=== PATIENT | female | born 1995 | race Caucasian/White ===

== ENCOUNTER 2017-01-04 14:58 | Emergency (ER) | payer OTHER ==
--- NOTE | 2017-01-04 16:18 | ER Document Report ---
ED Medical Screen (RME) - General Chief Complaint: Vaginal Bleeding Stated Complaint: ABDOMINAL CRAMPING Time Seen by Provider: 01/04/17 16:12 Notes: The patient is a 21-year-old female, 15 weeks confirmed IUP by ultrasound, presents with increased vaginal spotting over the past day. She has noticed a small amount of spotting throughout this after stress or intercourse, which her OB said was normal. Her blood type is O+. She denies abdominal pain, nausea, vomiting, urinary symptoms or lightheadedness. PE: NAD. Abdomen soft and non-tender. I have greeted and performed a rapid initial assessment of this patient. A comprehensive ED assessment and evaluation of the patient, analysis of test results and completion of the medical decision making process will be conducted by additional ED providers. TRAVEL OUTSIDE OF THE [place] IN LAST 30 DAYS: No - Related Data Allergies/Adverse Reactions: sulfamethoxazole [From Marra] Allergy (Verified 01/04/17 15:02) trimethoprim [From Septra] Allergy (Verified 01/04/17 15:02) Past Medical History Renal/ Medical History: Denies: Hx Peritoneal Dialysis Physical Exam - Vital signs Vitals: Temp Pulse Resp BP Pulse Ox 98.3 F 85 12 124/66 100 01/04/17 15:02 01/04/17 15:02 01/04/17 15:02 01/04/17 15:02 01/04/17 15:02 Course - Vital Signs Vital signs: Temp Pulse Resp BP Pulse Ox 98.3 F 85 12 124/66 100 01/04/17 15:02 01/04/17 15:02 01/04/17 15:02 01/04/17 15:02 01/04/17 15:02
--- NOTE | 2017-01-04 17:19 | ER Document Report ---
ED GI/ - General Mode of Arrival: Ambulatory Information source: Patient TRAVEL OUTSIDE OF THE [place] IN LAST 30 DAYS: No - HPI Patient complains to provider of: Abdominal pain - right side superpubic, - 15 weeks 3 days, Vaginal bleeding Onset: Yesterday Quality of pain: Cramping Pain Level: 3 Location: Suprapubic - right side Vaginal bleeding (Compared to normal period): Spotting, Dark brown. denies: Bright red, Passing clots Menstrual period history: OB ultrasound done: Yes - General Chief Complaint: Vaginal Bleeding Stated Complaint: ABDOMINAL CRAMPING Time Seen by Provider: 01/04/17 16:12 Notes: 1707 Patient is a 21 year old female who presents to the ED with complaints of vaginal spotting with onset last night that worsened this afternoon. Patient is currently 15 weeks and 3 days and this is patients 1st . Patient states the vaginal spotting is dark brown and red but denies any bright red blood or passing any clots. Patient states she also has right side superpubic pain. Patient is seen at [facility]. Patient denies a headache, blurred vision, sore throat, rhinorrhea, ear pain, chest pain, SOB, nausea, vomiting, diarrhea, numbness or tingling, or any increase in swelling in her hands and feet. Patient states that there has been no sexual activity in the past 3 days. Patient rates her pain as a 3/5 currently. No other concerns or complaints at this time. (PERFECTO DILLON) - Related Data Allergies/Adverse Reactions: sulfamethoxazole [From ] Allergy (Verified 01/04/17 15:02) trimethoprim [From Marra] Allergy (Verified 01/04/17 15:02) Past Medical History - General Information source: Patient - Social History Smoking Status: Former Smoker Cigarette use (# per day): No Chew tobacco use (# tins/day): No Frequency of alcohol use: None Drug Abuse: None Family History: None Patient has suicidal ideation: No Patient has homicidal ideation: No - Medical History Medical History: Negative Renal/ Medical History: Denies: Hx Peritoneal Dialysis Past Surgical History: Reports: Hx Kidney (Renal Surgery) - "stretched" Ureters , Hx Oral Surgery - wisdom teeth removal Review of Systems - Review of Systems Constitutional: No symptoms reported EENT: No symptoms reported. denies: Blurred vision, Ear pain, Throat pain, Other - rhinorrhea Cardiovascular: No symptoms reported. denies: Chest pain Respiratory: No symptoms reported. denies: Short of breath Gastrointestinal: See HPI, Abdominal pain - right side superpubic. denies: Diarrhea, Nausea, Vomiting Genitourinary: See HPI Female Genitourinary: See HPI, , Vaginal bleeding, Other - no clots Musculoskeletal: No symptoms reported. denies: Other - swelling in hands and feet Skin: No symptoms reported Hematologic/Lymphatic: No symptoms reported Neurological/Psychological: No symptoms reported. denies: Headaches, Numbness, Tingling Physical Exam - Vital signs Vitals: Temp Pulse Resp BP Pulse Ox 98.3 F 85 12 124/66 100 01/04/17 15:02 01/04/17 15:02 01/04/17 15:02 01/04/17 15:02 01/04/17 15:02 - Notes Notes: GENERAL: Alert, interacts well. No acute distress. HEAD: Normocephalic, atraumatic. EYES: Pupils equal, round, and reactive to light. Extraocular movements intact. ENT: Oral mucosa moist, tongue midline. NECK: Full range of motion. Supple. Trachea midline. LUNGS: Clear to auscultation bilaterally, no wheezes, rales, or rhonchi. No respiratory distress. HEART: Regular rate and rhythm. No murmurs, gallops, or rubs. ABDOMEN: Soft, non-tender. Gravid abdomen. Bowel sounds present in all 4 quadrants. Uterus is palpable 3cm above the pubis synthesis and is tender to palpation, abdomen itself is non tender EXTREMITIES: Moves all 4 extremities spontaneously. No edema, radial and dorsalis pedis pulses 2/4 bilaterally. No cyanosis. NEUROLOGICAL: Alert and oriented x3. Normal speech. PSYCH: Normal affect, normal mood. SKIN: Warm, dry, normal turgor. No rashes or lesions noted. (PERFECTO DILLON) Course - Re-evaluation Re-evalutation: 01/04/17 21:46 Quantitative hCG is 33,349, urinalysis shows small blood but no signs of infection. Patient is O+ program is not indicated. Transvaginal ultrasound shows single intrauterine with a heartbeat of 140-150 bpm, no evidence of subchorionic hemorrhage. Patient will be discharged home. (DEJAN NOWAK) - Vital Signs Vital signs: Temp Pulse Resp BP Pulse Ox 98.4 F 80 16 120/60 99 01/04/17 21:54 01/04/17 21:54 01/04/17 21:54 01/04/17 21:54 01/04/17 21:54 - Laboratory Laboratory results interpreted by me: 01/04/17 01/04/17 16:25 19:53 Beta HCG, Quant 41887.00 H Urine Blood SMALL H Discharge - Discharge Clinical Impression: First trimester bleeding Condition: Stable Disposition: HOME, SELF-CARE Additional Instructions: We did not find anything concerning on your workup today. Your quantitative hCG is 33,349. Your transvaginal ultrasound showed a normal healthy intrauterine today. Your bleeding appears to be coming once again from cervical irritation. We do not see any signs of miscarriage. If you have sex or put anything in your vagina it will likely cause more bleeding but will not likely cause a miscarriage. Referrals: SAMRA LEHMAN MD [Primary Care Provider] - Follow up as needed Scribe Attestation: 01/05/17 00:07 I personally performed the services described in the documentation, reviewed and edited the documentation which was dictated to the scribe in my presence, and it accurately records my words and actions. (DEJAN NOWAK) Scribe Documentation - Scribe Written by Emmanuel:: emmanuel Ordonez, 01/04/2017, [id number] acting as scribe for :: Carol
[2017-01-04 20:14] LABS: APPEARANCE,URINE SLIGHTLY-CLOUDY; BILIRUBIN,URINE NEGATIVE (NEGATIVE); CALCIUM OXALATE CRYSTALS,URINE FEW /HPF; GLUCOSE, URINE NEGATIVE (NEGATIVE); KETONES,URINE NEGATIVE (NEGATIVE); LEUKOCYTE ESTERASE,URINE NEGATIVE (NEGATIVE); NITRITE,URINE NEGATIVE (NEGATIVE); PROTEIN,URINE NEGATIVE (NEGATIVE); URINE SPECIFIC GRAVITY 1.019; UROBILINOGEN,URINE NEGATIVE mg/dL (<2.0)
--- NOTE | 2017-01-04 20:46 | RADIOLOGY REPORT (SQ) ---
EXAM DESCRIPTION: U/S OB 14+ TA/1 GEST W/DOPPLER COMPLETED DATE/TIME: 01/04/2017 7:38 pm REASON FOR STUDY: 15 wk preg, vag bleed, pain COMPARISON: None. TECHNIQUE: Static and Dynamic grayscale imaging performed of gravid uterus using transabdominal appr oach. Additional selected color Doppler and spectral images recorded. All stored on PACS. LIMITATIONS: None. FINDINGS: EGA: 15 weeks 4 days SULY: 06/24/2017 EFW: NA PERCENTILE: NA LVP: 4.1 CM PLACENTA: ANTERIOR PRESENTATION: Breech. ANATOMY: HEART RATE: 150 beats per minute. FOUR CHAMBER HEART: Not visualized THREE VESSEL CORD: Not visualized CORD INSERTION: Visualized. KIDNEYS AND BLADDER: Visualized. Appear normal. STOMACH: Visualized. Appears normal. SPINE: Not visualized BRAIN AND LATERAL VENTRICLES: Not visualized OTHER: No other significant finding. MATERNAL ADNEXA: Right ovary not visualized. Left ovary measures 2.9 x 2.3 x 1.6 cm and appears norm al CERVICAL LENGTH: 3.1 cm Closed. OTHER: No other significant finding. IMPRESSION: LIVING INTRAUTERINE . ESTIMATED GESTATIONAL AGE 15 weeks 4 days Limited visualization of the anatomy. No significant abnormality identified in the visualized portio ns. Trimester of : Second trimester - 13 weeks 1 day to 27 weeks 6 days. TECHNICAL DOCUMENTATION: JOB ID: [id number] All Rights Reserved
[2017-01-04 22:11] VITALS: BP 120/60
== END 2017-01-04 21:54 | disposition home or self-care (01) ==
LOC: ER 14:58
DX: O26.852 Spotting complicating pregnancy, second trimester (principal); Z3A.15 15 weeks gestation of pregnancy; Z88.3 Allergy status to other anti-infective agents; Z87.891 Personal history of nicotine dependence
CPT/HCPCS: 36415; 76805; 81001; 84702; 86900; 86901; 93976; 99284

== ENCOUNTER 2017-03-27 09:08 | Emergency (ER) | payer OTHER ==
[2017-03-27 09:12] VITALS: BP 124/72
[2017-03-27] MEDS ORDERED: LIDOCAINE 5% (700 MG) TRANSDERMAL ADH..PATCH TP ONE (09:53)
--- NOTE | 2017-03-27 09:55 | ER Document Report ---
HPI - HPI Patient complains to provider of: Sacroiliitis Onset: Last week Onset/Duration: Worse Quality of pain: Sharp Pain Level: 3 Context: Patient complains of right posterior hip pain for the past week that seemed to be more sharp today. Patient states pain is worse with movement. Patient denies any injury. Patient is currently 27 weeks . Patient denies any low back, urinary symptoms, or abdominal pain. Patient denies any vaginal bleeding or discharge. Patient denies any fever or recent illness. Associated Symptoms: Other - Right posterior hip pain Exacerbated by: Standing, Movement, Walking Relieved by: Remaining still Similar symptoms previously: Yes Recently seen / treated by doctor: Yes - ROS ROS below otherwise negative: Yes Systems Reviewed and Negative: Yes All other systems reviewed and negative - CONSTITUTIONAL Constitutional: DENIES: Fever, Chills - NEURO Neurology: DENIES: Headache, Weakness - CARDIOVASCULAR Cardiovascular: DENIES: Chest pain - GASTROINTESTINAL Gastrointestinal: DENIES: Abdominal Pain - URINARY Urinary: DENIES: Dysuria, Urgency, Frequency - MUSCULOSKELETAL Musculoskeletal: REPORTS: Extremity pain - DERM Skin Color: Normal Skin Problems: None Past Medical History - General Information source: Patient - Social History Smoking Status: Never Smoker Chew tobacco use (# tins/day): No Frequency of alcohol use: None Drug Abuse: None Occupation: none Lives with: Spouse/Significant other Family History: None - Medical History Medical History: Negative Renal/ Medical History: Denies: Hx Peritoneal Dialysis Past Surgical History: Reports: Hx Kidney (Renal Surgery) - "stretched" Ureters , Hx Oral Surgery - wisdom teeth removal - Immunizations Hx Diphtheria, Pertussis, Tetanus Vaccination: Yes Vertical Provider Document - CONSTITUTIONAL Agree With Documented VS: Yes Exam Limitations: No Limitations General Appearance: WD/WN, No Apparent Distress - INFECTION CONTROL TRAVEL OUTSIDE OF THE [place] IN LAST 30 DAYS: No - HEENT HEENT: Atraumatic, Normocephalic - NECK Neck: Normal Inspection, Supple - RESPIRATORY Respiratory: Breath Sounds Normal, No Respiratory Distress, Chest Non-Tender O2 Sat by Pulse Oximetry: 98 - CARDIOVASCULAR Cardiovascular: Regular Rate, Regular Rhythm, No Murmur Pulses: Normal: Dorsalis pedis - GI/ABDOMEN Gastrointestinal: Abdomen Soft, Abdomen Non-Tender Notes: gravid abd - BACK Back: Abnormal Inspection - Right SI joint tenderness. negative: CVA Tenderness -Right, CVA Tenderness-Left - MUSCULOSKELETAL/EXTREMETIES Musculoskeletal/Extremeties: MANUEL NEAL - NEURO Level of Consciousness: Awake, Alert, Appropriate Motor/Sensory: No Motor Deficit, No Sensory Deficit Notes: No saddle anesthesia, no footdrop - DERM Integumentary: Warm, Dry, No Rash Course - Re-evaluation Re-evalutation: 03/27/17 09:[address] Obando regarding patient presentation. Discussed plan to treat for SI joint tenderness, no abdominal pain no other back pain, agrees with plan to defer eval on labor and delivery. Does recommend obtaining urinalysis. - Vital Signs Vital signs: Temp Pulse Resp BP Pulse Ox 98.6 F 93 16 124/72 98 03/27/17 09:11 03/27/17 09:11 03/27/17 09:11 03/27/17 09:11 03/27/17 09:11 - Laboratory Laboratory results interpreted by me: 03/27/17 10:28 Labs- Entire Visit 03/27/17 10:00 Urine Color YELLOW Urine Appearance CLEAR Urine pH 6.0 Ur Specific [place] 1.010 Urine Protein NEGATIVE Urine Glucose (UA) 50 H Urine Ketones NEGATIVE Urine Blood NEGATIVE Urine Nitrite NEGATIVE Urine Bilirubin NEGATIVE Urine Urobilinogen NEGATIVE Ur Leukocyte Esterase NEGATIVE Urine WBC (Auto) 2 Urine RBC (Auto) 1 Urine Bacteria (Auto) 1+ Squamous Epi Cells Auto 1 Urine Mucus (Auto) RARE Urine Ascorbic Acid NEGATIVE Discharge - Discharge Clinical Impression: Sacro-iliac pain Condition: Stable Disposition: HOME, SELF-CARE Instructions: Acetaminophen, Ice Packs ([facility]), Low Back Pain ([facility]), Warm Packs ( [facility]) Additional Instructions: Return immediately for any new or worsening symptoms Followup with your primary care provider, call tomorrow to make a followup appointment Prescriptions: Lidocaine [Lidoderm 5% (700 mg) Transdermal Patch] 1 patch TP DAILY #7 adh..patch Referrals: [facility] [Provider Group] - Follow up tomorrow
[2017-03-27 10:17] LABS: APPEARANCE,URINE CLEAR; BILIRUBIN,URINE NEGATIVE (NEGATIVE); GLUCOSE, URINE 50 mg/dL (NEGATIVE); KETONES,URINE NEGATIVE (NEGATIVE); LEUKOCYTE ESTERASE,URINE NEGATIVE (NEGATIVE); NITRITE,URINE NEGATIVE (NEGATIVE); PROTEIN,URINE NEGATIVE (NEGATIVE); UROBILINOGEN,URINE NEGATIVE mg/dL (<2.0)
== END 2017-03-27 10:25 | disposition home or self-care (01) ==
LOC: ER 09:08
DX: M46.1 Sacroiliitis, not elsewhere classified (principal); Z3A.27 27 weeks gestation of pregnancy
CPT/HCPCS: 81001; 99283

== ENCOUNTER 2017-06-25 11:13 | Inpatient (IN) | payer OTHER ==
[2017-06-25 11:43] LABS: APPEARANCE,URINE CLOUDY; BILIRUBIN,URINE NEGATIVE (NEGATIVE); GLUCOSE, URINE NEGATIVE (NEGATIVE); KETONES,URINE NEGATIVE (NEGATIVE); LEUKOCYTE ESTERASE,URINE SMALL (NEGATIVE); NITRITE,URINE NEGATIVE (NEGATIVE); PROTEIN,URINE 30 mg/dL (NEGATIVE); URINE SPECIFIC GRAVITY 1.016; UROBILINOGEN,URINE NEGATIVE mg/dL (<2.0)
[2017-06-25 12:08] LABS: URINE BARBITURATES SCREEN NEGATIVE; URINE METHADONE SCREEN NEGATIVE; URINE OPIATES LOW NEGATIVE; URINE PHENCYCLIDINE SCREEN NEGATIVE
[2017-06-25] MEDS ORDERED: RINGERS SOLUTION,LACTATED 1,000 ML IV PRN (14:00)
[2017-06-25] MEDS ORDERED: RINGERS SOLUTION,LACTATED 1,000 ML IV ONE (14:03)
[2017-06-25 14:54] LABS: ABSOLUTE MONOCYTES (AUTO) 0.5 10^3/uL (0.1-1.4); ABSOLUTE NEUT (AUTO) 10.5 10^3/uL (1.7-8.2); BASOPHILS % (AUTO) 0.3 % (0-2); EOSINOPHILS % (AUTO) 0.1 % (0-6); HEMOGLOBIN 11.2 g/dL (12.0-15.5); HGB HCT DIFFERENCE 0.6; LYMPHOCYTES % (AUTO) 8.4 % (13-45); MEAN CORPUSCULAR HEMOGLOBIN 29.3 pg (27.0-33.4); MEAN CORPUSCULAR HGB CONC 33.9 g/dL (32.0-36.0); MEAN CORPUSCULAR VOLUME 86 fl (80-97); MONOCYTES % (AUTO) 3.8 % (3-13); RED BLOOD COUNT 3.83 10^6/uL (3.72-5.28); RED CELL DISTRIBUTION WIDTH 13.9 % (11.5-14.0); SEGMENTED NEUTROPHILS % (AUTO) 87.4 % (42-78)
[2017-06-25] MEDS ORDERED: ONDANSETRON HCL INJ/PF 4 MG/2 ML SDV IV ONE (14:59)
[2017-06-25] MEDS ORDERED: ONDANSETRON HCL INJ/PF 4 MG/2 ML SDV ONE (15:00)
[2017-06-25] MEDS ORDERED: EPHEDRINE SULFATE INJ 50 MG/1 ML AMPULE ONE (15:10)
[2017-06-25] MEDS ORDERED: FENTANYL/BUPIVACAINE/NS/PF 200 MCG/100 ML RTUINJ EPI ONE (15:10)
[2017-06-25] MEDS ORDERED: BUPIVACAINE HCL 0.25 % INJ/PF (2.5 MG/1 ML) 30 ML VIAL ONE (15:10)
[2017-06-25] MEDS ORDERED: OXYTOCIN/NORMAL SALINE 20 UNIT/1,000 ML RTUINJ ONE (18:05)
[2017-06-25] MEDS ORDERED: LIDOCAINE 1% INJ-PF (10 MG/ML) 30 ML SDV ONE (18:05)
[2017-06-25] MEDS ORDERED: MISOPROSTOL 0.2 MG TABLET ONE (18:05)
[2017-06-25] MEDS ORDERED: PROMETHAZINE HCL 25 MG TABLET PO PRN (20:17)
[2017-06-25] MEDS ORDERED: DIPHENHYDRAMINE HCL 25 MG CAPSULE PO PRN (20:17)
[2017-06-25] MEDS ORDERED: NA PHOS,M-B/NA PHOS,DI-BA (ADULT) 133 ML ENEMA PR PRN (20:17)
[2017-06-25] MEDS ORDERED: PSEUDOEPHEDRINE HCL 30 MG TABLET PO PRN (20:17)
[2017-06-25] MEDS ORDERED: PROMETHAZINE HCL INJ 25 MG/1 ML VIAL IV PRN (20:17)
[2017-06-25] MEDS ORDERED: OXYTOCIN/NORMAL SALINE 20 UNIT/1,000 ML RTUINJ IV PRN (20:17)
[2017-06-25] MEDS ORDERED: ACETAMINOPHEN WITH CODEINE #3 TABLET PO PRN ×2 (20:17)
[2017-06-25] MEDS ORDERED: GLYCERIN/WITCH HAZEL LEAF 1 EACH MED..PAD TP PRN (20:17)
[2017-06-25] MEDS ORDERED: DIBUCAINE 1% OINTMENT 28 GM TP PRN (20:17)
[2017-06-25] MEDS ORDERED: BENZOCAINE/MENTHOL AEROSOL SPRAY 56 ML TOP PRN (20:17)
[2017-06-25] MEDS ORDERED: DIPH/PERTUSS(ACELL)/TETANUS VAC/PF 0.5 ML SYR (>=10YO) IM PRN (20:17)
[2017-06-25] MEDS ORDERED: MAGNESIUM HYDROXIDE SUSP 30 ML UDCUP PO PRN (20:17)
[2017-06-25] MEDS ORDERED: ZOLPIDEM TARTRATE 5 MG TABLET PO PRN (20:17)
[2017-06-25] MEDS ORDERED: ACETAMINOPHEN 650 MG SUPP.RECT PR PRN (20:17)
[2017-06-25] MEDS ORDERED: MEASLES,MUMPS&RUBELLA VACC/PF 0.5 ML VIAL SUBCUT PRN (20:17)
[2017-06-25] MEDS ORDERED: PROMETHAZINE HCL 25 MG SUPP.RECT PR PRN (20:17)
--- NOTE | 2017-06-25 20:55 | Delivery Summary ---
Del Sum A-C Datetime Report Generated by CPN: 06/25/2017 20:54 DELIVERY PERSONNEL DELIVERY PERSONNEL: [id number] Delivery Doctor:: Brynn Amador CNM Labor and Delivery Nurse:: Rosemary Fortune RNsoftware installer Nurse:: Zenaida Simpson RN Nursery Nurse:: Shira Dillard RN Tube Blower/FOOD SERVICE HELPER: Beatrizsuzy Palmer, ST MATERNAL INFORMATION Delivery Anesthesia: Epidural Medications After Delivery: Pitocin Bolus-Please Comment; Pitocin Drip 20 Units/1000ml NSS Estimated Blood Loss (ml): 250 Maternal Complications: None Provider Comments: after onset of spontaneous labor KESHIA VIABLE MALE WITH SPONTANEOUS CRY SHOULDERS DELIVERED EASILY AFTER NUCHAL CORD REDUCED OVER HEAD CORD DOUBLE CLAMPED AND CUT BY FOB SPONTANEOUS PLACENTA WITH 3VC REPAIR OF LACERATION NOTED ABOVE MOTHER AND STABLE IN L_D #2 LABOR SUMMARY EDC: 06/20/2017 00:00 No. Babies in Womb: 1 Attempted: No Labor Anesthesia: Epidural LABOR INFORMATION Reason for Induction: Not Applicable Onset of Labor: 06/25/2017 13:32 Complete Dilatation: 06/25/2017 18:03 Oxytocin: N/A Group B Beta Strep: Negative Antibiotics # of Doses: N/A Antibiotics Time of Last Dose: N/A Name of Antibiotic Given: N/A Steroids Given: None Reason Steroids Not Administered: Not Applicable MEMBRANES Membranes Rupture Method: Spontaneous Rupture of Membranes: 06/25/2017 19:06 Length of Rupture (hr): 0.53 Amniotic Fluid Color: Clear Amniotic Fluid Amount: Small Amniotic Fluid Odor: Normal STAGES OF LABOR Stage 1 hr: 4 Stage 1 min: 31 Stage 2 hr: 1 Stage 2 min: 35 Stage 3 hr: 0 Stage 3 min: 7 Total Time in Labor hr: 6 Total Time in Labor min: 13 VAGINAL DELIVERY Episiotomy: None Laceration #1: Periurethral Laceration Extension #1: N/A Laceration #2: Perineal Laceration Extension #2: First Degree Laceration Repair: Not Applicable Laceration Repair Note: first degree perineal laceration repaired with 3.0 chromic suture Sponge Count Correct: N/A Sharps Count Correct: N/A CSECTION DELIVERY Primary Indication: N/A Secondary Indication: N/A CSection Incidence: N/A Labor: N/A Elective: N/A CSection Incision: N/A BABY A INFORMATION Delivery Date/Time: 06/25/2017 19:38 Method of Delivery: Vaginal Born in Route : No : N/A Forceps: N/A Vacuum Extraction: N/A Shoulder Dystocia : No PRESENTATION/POSITION BABY A Presentation: Cephalic Cephalic Presentation: Vertex Vertex Position: Right Occipital Anterior Breech Presentation: N/A PLACENTA INFORMATION BABY A Placenta Delivery Time : 06/25/2017 19:45 Placenta Method of Delivery: Spontaneous Placenta Status: Delivered SCORES BABY A Heart Rate 1 min: >100 bpm Resp Effort 1 min: Good Cry Reflex Irritability 1 min: Cough or Sneeze or Pulls Away Muscle Tone 1 min: Active Motion Color 1 min: Body Pace, Extremities Blue SCORE 1 MIN: 9 Heart Rate 5 min: >100 bpm Resp Effort 5 min: Good Cry Reflex Irritability 5 min: Cough or Sneeze or Pulls Away Muscle Tone 5 min: Active Motion Color 5 min: Body Pace, Extremities Blue SCORE 5 MIN: 9 INFORMATION BABY A Gestational Age at Delivery: 40.5 Gestational Status: Full Term- 39- 40.6 Weeks Infant Outcome : Liveborn Infant Condition : Stable Sex: Male IDENTIFICATION BABY A Verification Date/Time: 06/25/2017 19:50 ID Band Number: [id number] Mother's Name Verified: Yes Infant RN Verifying : Zenaida Ovallelek/ Candida Goodman WEIGHT/LENGTH BABY A Infant Birthweight (gm): 3630 Weight (lb): 8 Infant Weight (oz): 0 Length (in): 21.00 Infant Length (cm): 53.34 CORD INFORMATION BABY A No. Cord Vessels: 3 Nuchal Cord : Around Neck x1, Loose Cord Blood Taken: Yes-For Eval (Mom's Blood Type - or O+) Suction: Mouth; Nose ASSESSMENT BABY A Complications: None Physical Findings at Delivery: Within Normal Limits Respirations: Appears Normal Skin to Skin: Yes Skin to Skin Time (min): 45 Clinical Research Director/ALS Called : No Care By: BOUCHRA Kilgore Transferred To: Remains with Mother BABY B INFORMATION : N/A SIGNATURES Assignment: Dani Son MD Signature: with User ID: [email or web address] : with User ID: [email or web address] : I was personally available for consultation and serving as supervising physician for the MLP.
--- NOTE | 2017-06-25 22:35 | Admission Physical ---
Datetime Report Generated by CPN: 06/25/2017 22:35 CURRENT ADMISSION Chief Complaint: Uterine Contractions Indication for Induction: Not Applicable Indication for Induction: Postterm, Intrauterine ; Active Labor Admit Plan: Admit to Unit; Initiate Labor Protocol Admit Plan- Other: GBS neg ALLERGIES Medication Allergies: Yes Medication Allergies: sulfamethoxazole (03/27/2017); trimethoprim (03/27/2017) Latex: No Latex Allergies Food Allergies: N/A Environmental Allergies: N/A OBSTETRICAL HISTORY EDC: 06/20/2017 00:00 : 1 Para: 0 Gestational Diabetes: No Rh Sensitization: No Incompetent Cervix: No ABILIO: No Infertility: No ART Treatment: No Uterine Anomaly: No IUGR: No Hx Previous C/S: No Macrosomia: No Hx Loss/Stillborn: No PIH: No Hx : No Placenta Previa/Abruption: No Depression/PP Depression: Yes PTL/PROM: No Post Hemorrhage: No Current Procedures: Ultrasound Obstetrical History Comments: G1 - Current SEE RECORDS Alcohol: No Marijuana : No Cocaine: No Other Illicit Drugs: No Cigarettes: Never Smoker. [id number] MEDICAL HISTORY Diabetes: No Blood Transfusion: No Pulmonary Disease (Asthma, TB): No Breast Disease: No Hypertension: No Mothers Helper Surgery: No Heart Disease: No Hosp/Surgery: Yes Autoimmune Disorder: No Anesthetic Complications: No Kidney Disease: No Abnormal Pap Smear: No Neuro/Epilepsy: No Psychiatric Disorders: No Other Medical Diseases: No Hepatitis/Liver Disease: No Significant Family History: No Varicosities/Phlebitis: No Trauma/Violence : No Thyroid Dysfunction: No Medical History Comments: Depression - was taking zoloft; bunionectomy at 15 INFECTIOUS HISTORY Gonorrhea: No Genital Herpes: No Chlamydia: No Tuberculosis: No Syphilis: No Hepatitis: No HIV/AIDS Exposure: No Rash or Viral Illness: No HPV: No PHYSICAL EXAM General: Normal HEENT: Deferred Neurologic: Deferred Thyroid: Deferred Heart: Normal Lungs: Normal Breast: Deferred Back: Deferred Abdomen: Normal Genitourinary Exam: Normal Extremities: Normal DTRs: Deferred Pelvic Type: Adequate Vital Signs: Reviewed VAGINAL EXAM Dilatation: 4 Effacement: 80 Station: -1 FETUS A EGA: 40.5 Monitoring: External US FHR- Baseline: 120 Accelerations: 15X15 Decelerations: None Presentation: Vertex PLANS FOR LABOR AND DELIVERY Labor and Delivery: Placenta Request Pain Management: Epidural Feeding Preference: Breast Benefit of Breast Feed Discussed: Yes Circumcision: No INFORMED CONSENT Assignment: Dani Son MD Signature: with User ID: [email or web address] : with User ID: [email or web address]
[2017-06-26] MEDS: IBUPROFEN 800 MG TABLET PO SCH ×4 (00:42→21:21)
[2017-06-26] MEDS: FAMOTIDINE 20 MG TABLET PO SCH ×3 (00:42→21:22)
[2017-06-26 08:32] LABS: HEMATOCRIT 29.8 % (36.0-47.0); HEMOGLOBIN 10.1 g/dL (12.0-15.5); HGB HCT DIFFERENCE 0.5; MEAN CORPUSCULAR HEMOGLOBIN 29.5 pg (27.0-33.4); MEAN CORPUSCULAR HGB CONC 33.8 g/dL (32.0-36.0); MEAN CORPUSCULAR VOLUME 87 fl (80-97); RED BLOOD COUNT 3.41 10^6/uL (3.72-5.28); WHITE BLOOD COUNT 12.4 10^3/uL (4.0-10.5)
--- NOTE | 2017-06-26 10:01 | PDOC PROGRESS REPORT ---
Subjective-OB Subjective: Post Delivery Day: 21 year old. Denies any needs at this time reports without difficulty, bleeding slowing, tolerating diet and pain controlled with current meds. Physical Exam (OB) Vital Signs: Temp Pulse Resp BP Pulse Ox 98.1 F 61 16 119/59 L 99 06/26/17 07:34 06/26/17 07:34 06/26/17 07:34 06/26/17 07:34 06/26/17 07:34 Intake & Output 06/25/17 06/26/17 06/27/17 06:59 06:59 06:59 Weight 83 kg - Abdomen Description: Soft Hernia Present: No Fundal Description: Firm, Midline Fundal Height: u/u - u/2 - Abdominal Tenderness: Nontender - Extremities Lower extremities: Ricardo's sign - neg Calf: Normal, Nontender Objective-Diagnostic Laboratory: 06/26/17 07:51 06/25/17 06/25/17 06/25/17 11:24 14:42 14:42 WBC 12.0 H RBC 3.83 Hgb 11.2 L Hct 33.0 L MCV 86 MCH 29.3 MCHC 33.9 RDW 13.9 Plt Count 170 Seg Neutrophils % 87.4 H Lymphocytes % 8.4 L Monocytes % 3.8 Eosinophils % 0.1 Basophils % 0.3 Absolute Neutrophils 10.5 H Absolute Lymphocytes 1.0 Absolute Monocytes 0.5 Absolute Eosinophils 0.0 Absolute Basophils 0.0 Urine Color YELLOW Urine Appearance CLOUDY Urine pH 5.0 Ur Specific [place] 1.016 Urine Protein 30 H Urine Glucose (UA) NEGATIVE Urine Ketones NEGATIVE Urine Blood LARGE H Urine Nitrite NEGATIVE Ur Leukocyte Esterase SMALL H Blood Type O POSITIVE Antibody Screen NEGATIVE 06/26/17 07:51 WBC 12.4 H RBC 3.41 L Hgb 10.1 L Hct 29.8 L MCV 87 MCH 29.5 MCHC 33.8 RDW 14.0 Plt Count 143 L Seg Neutrophils % Lymphocytes % Monocytes % Eosinophils % Basophils % Absolute Neutrophils Absolute Lymphocytes Absolute Monocytes Absolute Eosinophils Absolute Basophils Urine Color Urine Appearance Urine pH Ur Specific [place] Urine Protein Urine Glucose (UA) Urine Ketones Urine Blood Urine Nitrite Ur Leukocyte Esterase Blood Type Antibody Screen Assessment and Plan(PN) - Time Spent with Patient Time with patient: Less than 15 minutes Medications reviewed and adjusted accordingly: Yes - Disposition Anticipated Discharge: Home Within: within 24 hours
[2017-06-26] MEDS: PRENATAL VITAMIN W DHA CAPSULE PO SCH (10:04)
[2017-06-26] MEDS: FERROUS SULFATE 325 MG TABLET PO SCH ×2 (10:05→17:42)
[2017-06-26] MEDS: SENNOSIDES/DOCUSATE 8.6-50 MG 1 EACH TABLET PO SCH (10:05)
[2017-06-26] MEDS: DOCUSATE SODIUM 100 MG CAPSULE PO SCH ×2 (10:05→17:42)
[2017-06-27] MEDS: IBUPROFEN 800 MG TABLET PO SCH (05:53)
--- NOTE | 2017-06-27 10:06 | PDOC DISCHARGE SUMMARY ---
Final Diagnosis Discharge Date: 06/27/17 Discharge Data - Discharge Medication Prescriptions: Ibuprofen [Motrin 800 mg Tablet] 800 mg PO Q8 #60 tablet Home Medications: Acetaminophen [Tylenol] 650 mg PO Q4H PRN 03/27/17 No122/Iron/Folic Acid [ Multi Tablet] 1 each PO DAILY 06/25/17 Ibuprofen [Motrin 800 mg Tablet] 800 mg PO Q8 #60 tablet 06/27/17 Gestational Age: 40 Reason(s) for Admission: Onset of Labor Procedures: NST Intrapartum Procedure(s): Spontaneous Vaginal Delivery Complication(s): Laceration-Perineal Laceration-Degree: 1st - Diagnosis Test Laboratory: Temp Pulse Resp BP Pulse Ox 98.2 F 66 16 111/55 L 97 06/27/17 09:12 06/27/17 09:12 06/27/17 09:12 06/27/17 09:12 06/27/17 09:12 06/25/17 06/25/17 06/26/17 11:24 14:42 07:51 RBC 3.83 3.41 L Hgb 11.2 L 10.1 L Hct 33.0 L 29.8 L Urine Opiates Screen NEGATIVE - Discharge information/Instructions Discharge Activity: Balance Activity w/Rest, Pelvic Rest Discharge Diet: Regular Disposition: HOME, SELF-CARE Follow up with: [facility] in: 4, Weeks
[2017-06-27] MEDS: SENNOSIDES/DOCUSATE 8.6-50 MG 1 EACH TABLET PO SCH (10:37)
[2017-06-27] MEDS: DOCUSATE SODIUM 100 MG CAPSULE PO SCH (10:37)
[2017-06-27] MEDS: FERROUS SULFATE 325 MG TABLET PO SCH (10:37)
[2017-06-27] MEDS: FAMOTIDINE 20 MG TABLET PO SCH (10:37)
[2017-06-27] MEDS: PRENATAL VITAMIN W DHA CAPSULE PO SCH (10:37)
[2017-06-27 10:50] VITALS: BP 124/54
[2017-06-27] MEDS ORDERED: INFLUENZA ADLT QUAD (36MOS+) 2017-18 VAC 0.5 ML SYR IM PRN (11:09)
== END 2017-06-27 11:38 | disposition home or self-care (01) | DRG 775 ==
LOC: LC 11:13 → LR 13:39 → 2S 22:00
PROVIDERS: ADMIT Obstetrics & Gynecology; ATTEND Obstetrics & Gynecology
PROC: 10E0XZZ Delivery of Products of Conception, External Approach (ICD-10-PCS; principal; 2017-06-25)
PROC: 0HQ9XZZ Repair Perineum Skin, External Approach (ICD-10-PCS; 2017-06-25)
PROC: 0UQMXZZ Repair Vulva, External Approach (ICD-10-PCS; 2017-06-25)
PROC: 4A1HXCZ Monitoring of Products of Conception, Cardiac Rate, External Approach (ICD-10-PCS; 2017-06-25)
PROC: 3E0234Z Introduction of Serum, Toxoid and Vaccine into Muscle, Percutaneous Approach (ICD-10-PCS; 2017-06-27)
PROC: 3E0234Z Introduction of Serum, Toxoid and Vaccine into Muscle, Percutaneous Approach (ICD-10-PCS; 2017-06-27)
DX: O69.81X0 Labor and delivery complicated by cord around neck, without compression, not applicable or unspecified (principal); O99.344 Other mental disorders complicating childbirth; F32.9 Major depressive disorder, single episode, unspecified; O71.82 Other specified trauma to perineum and vulva; O70.0 First degree perineal laceration during delivery; Z23 Encounter for immunization; Z88.3 Allergy status to other anti-infective agents; Z88.2 Allergy status to sulfonamides; Z3A.40 40 weeks gestation of pregnancy; Z37.0 Single live birth
CPT/HCPCS: 36415; 80307; 81005; 85025; 85027; 86592; 86850; 86900; 86901; 90686; 90715; J2405; J2590; J3490

== ENCOUNTER 2017-11-01 21:08 | Emergency (ER) | payer OTHER ==
--- NOTE | 2017-11-01 22:28 | ER Document Report ---
ED General - General Mode of Arrival: Ambulatory Information source: Patient TRAVEL OUTSIDE OF THE [place] IN LAST 30 DAYS: No <ANGY LOPEZ - Last Filed: 11/01/17 22:29> <GOPI POWERS - Last Filed: 11/01/17 22:42> - General Chief Complaint: Vaginal Pain Stated Complaint: VAGINAL PAIN Time Seen by Provider: 11/01/17 21:58 Notes: Patient is a 22 year old female presenting to the emergency department complaining of vaginal pain. Patient states she was having a bowel movement when she felt something "pop" and believed her uterus prolapsed. Patient denies any other pain. Patient had a vaginal in June 2017. (ANGY LOPEZ) - Related Data Allergies/Adverse Reactions: sulfamethoxazole [From ] Allergy (Verified 03/27/17 09:11) trimethoprim [From Marra] Allergy (Verified 03/27/17 09:11) Past Medical History - General Information source: Patient - Social History Smoking Status: Unknown if Ever Smoked Family History: None Pulmonary Medical History: Reports: Hx Asthma Psychiatric Medical History: Reports: Hx Depression Past Surgical History: Reports: Hx Kidney (Renal Surgery) - "stretched" Ureters , Hx Oral Surgery - wisdom teeth removal - Immunizations Hx Diphtheria, Pertussis, Tetanus Vaccination: Yes <ANGY LOPEZ - Last Filed: 11/01/17 22:29> Review of Systems - Review of Systems Constitutional: No symptoms reported EENT: No symptoms reported Cardiovascular: No symptoms reported Respiratory: No symptoms reported Gastrointestinal: No symptoms reported Genitourinary: No symptoms reported Female Genitourinary: See HPI Musculoskeletal: No symptoms reported Skin: No symptoms reported Hematologic/Lymphatic: No symptoms reported Neurological/Psychological: No symptoms reported -: Yes All other systems reviewed and negative <ANGY LOPEZ - Last Filed: 11/01/17 22:29> Physical Exam <ANGY LOPEZ - Last Filed: 11/01/17 22:29> - Genitourinary Vaginal bleeding: Mild Bimanuel exam: Other - No evidence for uterine prolapse. Patient does have a cystocele that is worse with Valsalva. No: Cervical motion tender, Bladder/ Urethral tender, Adnexal mass, Adnexal tenderness, Uterus enlarged <GOPI POWERS - Last Filed: 11/01/17 22:42> - Vital signs Vitals: Temp Pulse Resp BP Pulse Ox 99 F 102 H 26 H 128/77 H 99 11/01/17 21:18 11/01/17 21:18 11/01/17 21:18 11/01/17 21:18 11/01/17 21:18 - Notes Notes: GENERAL: Alert, interacts well. No acute distress. HEAD: Normocephalic, atraumatic. EYES: Pupils equal, round, and reactive to light. Extraocular movements intact. ENT: Oral mucosa moist, tongue midline. NECK: Full range of motion. Supple. Trachea midline. EXTREMITIES: Moves all 4 extremities spontaneously. NEUROLOGICAL: Alert and oriented x3. Normal speech. PSYCH: Normal affect, normal mood. SKIN: Warm, dry, normal turgor. No rashes or lesions noted. PELVIC: (ANGY LOPEZ) Course <ANGY LOPEZ - Last Filed: 11/01/17 22:29> <GOPI POWERS - Last Filed: 11/01/17 22:42> - Re-evaluation Re-evalutation: 11/01/17 22:40 Patient is a 22-year-old female who came in concerned that she had uterine prolapse. On vaginal exam, patient does have some bleeding. She is currently menstruating. She does not have any pain. No evidence for prolapse. Patient does have a small cystocele. She is planning to have more children. I have counseled her that this will not get better but probably progress as her pelvic floor becomes more relaxed with more children. 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 Patient is feeling better. Stable for discharge. (GOPI POWERS) - Vital Signs Vital signs: Temp Pulse Resp BP Pulse Ox 97.6 F 99 20 124/77 97 11/01/17 22:33 11/01/17 22:33 11/01/17 22:33 11/01/17 22:33 11/01/17 22:33 Discharge <ANGY LOPEZ - Last Filed: 11/01/17 22:29> <GOPI POWERS - Last Filed: 11/01/17 22:42> - Discharge Clinical Impression: Cystocele Qualifiers: Cystocele location: midline Qualified Code(s): N81.11 - Cystocele, midline Condition: Stable Disposition: HOME, SELF-CARE Additional Instructions: It does not appear in your exam that you have any evidence for a uterine prolapse. It does appear that you have a small cystocele which is normal after childbirth. Please follow-up with your torpedo shooter. Please return if you have any further concerns or questions. Glenny Attestation: 11/01/17 22:41 I personally performed the services described in the documentation, reviewed and edited the documentation which was dictated to the scribe in my presence, and it accurately records my words and actions. (GOPI POWERS) Jluisibe Documentation - Scribe Written by Glenny:: Glenny Elizondo, 11/01/2017 22:34 acting as scribe for :: [place] <ANGY LOPEZ - Last Filed: 11/01/17 22:29>
[2017-11-01 22:34] VITALS: BP 124/77
== END 2017-11-01 22:36 | disposition home or self-care (01) ==
LOC: ER 21:08
DX: N81.11 Cystocele, midline (principal); R10.2 Pelvic and perineal pain; Z88.3 Allergy status to other anti-infective agents
CPT/HCPCS: 99283

== ENCOUNTER 2018-03-30 20:23 | Emergency (ER) | payer OTHER ==
[2018-03-30 20:29] VITALS: BP 121/72
[2018-03-30] MEDS ORDERED: NORMAL SALINE 1000 ML 1,000 ML IV ONE (21:59)
[2018-03-30] MEDS ORDERED: DIPHENHYDRAMINE HCL 50 MG/ML VIAL IV ONE (21:59)
[2018-03-30] MEDS ORDERED: KETOROLAC TROMETHAMINE INJ/PF 30 MG/1 ML SDV IV ONE (21:59)
[2018-03-30] MEDS ORDERED: PROCHLORPERAZINE EDISYLATE INJ 10 MG/2 ML VIAL IV ONE (22:00)
[2018-03-30] MEDS ORDERED: METHOCARBAMOL INJ/PF 1000 MG/10 ML SDV IV ONE (22:01)
--- NOTE | 2018-03-30 22:05 | ER Document Report ---
ED Headache - General Mode of Arrival: Ambulatory Information source: Patient TRAVEL OUTSIDE OF THE [place] IN LAST 30 DAYS: No - General Chief Complaint: Headache Stated Complaint: HEADACHE Time Seen by Provider: 03/30/18 21:52 Notes: Patient is a 22 year old female with depression and anxiety presents to the emergency department complaining of a headache onset 1.5 weeks ago. Patient describes the headache as a sharp pounding that radiates from behind the eyes, to the frontal scalp into the occipital scalp. Patient's associated symptoms include nausea, neck pain and photosensitivity. Patient describes her neck pain as a neck stiffness. Patient states she has taken Excedrin this morning with no relief. Patient denies any sinus problems or a history of migraines. Patient's last menstrual period was March 05, 2018. (ANGY LOPEZ) - Related Data Allergies/Adverse Reactions: sulfamethoxazole [From ] Allergy (Verified 03/27/17 09:11) trimethoprim [From Marra] Allergy (Verified 03/27/17 09:11) Past Medical History - General Information source: Patient - Social History Smoking Status: Never Smoker Cigarette use (# per day): No Chew tobacco use (# tins/day): No Frequency of alcohol use: Occasional Drug Abuse: None Family History: None Patient has suicidal ideation: No Patient has homicidal ideation: No Pulmonary Medical History: Reports: Hx Asthma Psychiatric Medical History: Reports: Hx Depression Past Surgical History: Reports: Hx Kidney (Renal Surgery) - "stretched" Ureters , Hx Oral Surgery - wisdom teeth removal - Immunizations Hx Diphtheria, Pertussis, Tetanus Vaccination: Yes Review of Systems - Review of Systems Constitutional: No symptoms reported EENT: No symptoms reported Cardiovascular: No symptoms reported Respiratory: No symptoms reported Gastrointestinal: See HPI, Nausea Genitourinary: No symptoms reported Female Genitourinary: No symptoms reported Musculoskeletal: See HPI, Neck pain Skin: No symptoms reported Hematologic/Lymphatic: No symptoms reported Neurological/Psychological: See HPI, Headaches -: Yes All other systems reviewed and negative Physical Exam - Vital signs Vitals: Temp Pulse Resp BP Pulse Ox 99.8 F 103 H 18 121/72 97 03/30/18 20:27 03/30/18 20:27 03/30/18 20:27 03/30/18 20:27 03/30/18 20:27 - Notes Notes: GENERAL: Alert, interacts well. No acute distress. HEAD: Normocephalic, atraumatic. Temporal, parietal, occipital and frontal scalp tender to palpation. EYES: Pupils equal, round, and reactive to light. Extraocular movements intact. Not tender to palpation. ENT: Oral mucosa moist, tongue midline. NECK: Full range of motion. Supple. Trachea midline. Posterior cervical muscles tender to palpation. LUNGS: Clear to auscultation bilaterally, no wheezes, rales, or rhonchi. No respiratory distress. HEART: Regular rate and rhythm. No murmurs, gallops, or rubs. EXTREMITIES: Moves all 4 extremities spontaneously. NEUROLOGICAL: Alert and oriented x3. Normal speech. PSYCH: Normal affect, normal mood. SKIN: Warm, dry, normal turgor. No rashes or lesions noted. (ANGY LOPEZ) Course - Re-evaluation Re-evalutation: 03/30/18 23:45 Patient reports her headache is much better she feels much better. There is some scalp and posterior cervical muscle tenderness still, but it is not as bad as it was. (BEATRIS RESENDEZ) - Vital Signs Vital signs: Temp Pulse Resp BP Pulse Ox 99.8 F 103 H 18 121/72 97 03/30/18 20:27 03/30/18 20:27 03/30/18 20:27 03/30/18 20:27 03/30/18 20:27 Discharge - Discharge Clinical Impression: Muscle contraction headache Condition: Stable Disposition: HOME, SELF-CARE Additional Instructions: Tension Headache Your problem has been diagnosed as muscle tension headache. This very common type of headache occurs because of tightness in the muscles of the head and neck. The cause may be neck or jaw joint problems, but most commonly the cause is emotional stress. The headache may last hours or days. The treatment of uncomplicated tension headaches is rest and pain medication. Often, the newer antiinflammatory pain medications are prescribed, as these also decrease the irritability of the painful tissues. Muscle relaxers , cold packs, or warm packs are sometimes helpful. Anti-anxiety medication or narcotics are sometimes needed temporarily, but are best avoided in the long run. Your doctor has evaluated your headache problem, and finds no evidence of a serious health problem as a cause for the headache. If your headache becomes more severe, or if new symptoms develop (such as fever, stiff neck, vomiting, or decreasing alertness) you should be re-examined by the physician. Try ice packs and moist heat to the painful cervical and scalp muscles. Take ibuprofen 800 mg every 8 hours. Take the Flexeril as prescribed for muscle relaxation. Rest. Follow-up with your primary care provider if not improving. RETURN TO THE EMERGENCY ROOM IF ANY NEW OR WORSENING SYMPTOMS. Prescriptions: Cyclobenzaprine HCl [Flexeril 5 mg Tablet] 5 mg PO TID PRN #15 tablet PRN Reason: Referrals: PERLA BECERRIL,LAMONT Benavides MD [Primary Care Provider] - Follow up as needed Glenny Attestation: 03/30/18 22:49 I personally performed the services described in the documentation, reviewed and edited the documentation which was dictated to the scribe in my presence, and it accurately records my words and actions. (BEATRIS RESENDEZ) Jluisibe Documentation - Scribe Written by Glenny:: Glenny Elizondo, 03/30/2018 22:06 acting as scribe for :: [place]
[2018-03-30] MEDS ORDERED: DIPHENHYDRAMINE HCL 50 MG/ML VIAL ONE (22:26)
== END 2018-03-31 00:03 | disposition home or self-care (01) ==
LOC: ER 20:23
DX: G44.209 Tension-type headache, unspecified, not intractable (principal); Z88.3 Allergy status to other anti-infective agents
CPT/HCPCS: 99284; 96375; 96365; 96366; J1200; J2800; J1885; J0780

== ENCOUNTER 2018-10-21 13:18 | Emergency (ER) | payer OTHER ==
[2018-10-21 13:22] VITALS: BP 111/75
[2018-10-21] MEDS ORDERED: ONDANSETRON 4 MG TAB.RAPDIS PO ONE (13:36)
--- NOTE | 2018-10-21 13:36 | ER Document Report ---
ED Medical Screen (RME) - General Chief Complaint: Nausea/Vomiting/Diarrhea Stated Complaint: ABDOMINAL PAIN Time Seen by Provider: 10/21/18 13:29 Primary Care Provider: LAMONT DUNCAN JR, MD [Primary Care Provider] - Follow up as needed Mode of Arrival: Ambulatory Information source: Patient Notes: 23-year-old female presented to ED for right upper quadrant abdominal pain with nausea vomiting and diarrhea. She states that started yesterday. Last menstrual period was September 23. She states she had a similar incident about a month ago and then it resolved itself. She states this time is not resolving. Patient has a history of anxiety and depression has had her wisdom teeth out and a bunionectomy. Other than that she has negative make medical history. I have greeted and performed a rapid initial assessment of this patient. A comprehensive ED assessment and evaluation of the patient, analysis of test results and completion of medical decision making process will be conducted by an additional ED providers. TRAVEL OUTSIDE OF THE [place] IN LAST 30 DAYS: No - Related Data Allergies/Adverse Reactions: sulfamethoxazole [From [facility]] Allergy (Verified 10/21/18 13:19) trimethoprim [From Marra] Allergy (Verified 10/21/18 13:19) Past Medical History - Social History Frequency of alcohol use: None Drug Abuse: None Pulmonary Medical History: Reports: Hx Asthma Renal/ Medical History: Denies: Hx Peritoneal Dialysis Psychiatric Medical History: Reports: Hx Depression Past Surgical History: Reports: Hx Kidney (Renal Surgery) - "stretched" Ureters, Hx Oral Surgery - wisdom teeth removal - Immunizations Hx Diphtheria, Pertussis, Tetanus Vaccination: Yes History of Influenza Vaccine for 04/2017 - 09/2017 Season: No Physical Exam - Vital signs Vitals: Temp Pulse Resp BP Pulse Ox 98.1 F 98 16 111/75 97 10/21/18 13:21 10/21/18 13:21 10/21/18 13:21 10/21/18 13:21 10/21/18 13:21 Course - Vital Signs Vital signs: Temp Pulse Resp BP Pulse Ox 98.1 F 98 16 111/75 97 10/21/18 13:21 10/21/18 13:21 10/21/18 13:21 10/21/18 13:21 10/21/18 13:21 Doctor's Discharge - Discharge Referrals: LAMONT DUNCAN JR, MD [Primary Care Provider] - Follow up as needed
[2018-10-21 14:11] LABS: ABSOLUTE BASOPHILS # (AUTO) 0.1 10^3/uL (0.0-0.2); ABSOLUTE EOSINOPHILS # (AUTO) 0.3 10^3/uL (0.0-0.6); ABSOLUTE LYMPHOCYTES (AUTO) 1.5 10^3/uL (0.5-4.7); ABSOLUTE MONOCYTES (AUTO) 0.5 10^3/uL (0.1-1.4); ABSOLUTE NEUT (AUTO) 7.1 10^3/uL (1.7-8.2); BASOPHILS % (AUTO) 0.5 % (0-2); EOSINOPHILS % (AUTO) 2.8 % (0-6); HEMATOCRIT 42.6 % (36.0-47.0); HEMOGLOBIN 15.2 g/dL (12.0-15.5); LYMPHOCYTES % (AUTO) 15.8 % (13-45); MEAN CORPUSCULAR HEMOGLOBIN 31.7 pg (27.0-33.4); MEAN CORPUSCULAR HGB CONC 35.8 g/dL (32.0-36.0); MEAN CORPUSCULAR VOLUME 89 fl (80-97); MONOCYTES % (AUTO) 5.6 % (3-13); PLATELET COUNT 241 10^3/uL (150-450); RED BLOOD COUNT 4.81 10^6/uL (3.72-5.28); RED CELL DISTRIBUTION WIDTH 12.6 % (11.5-14.0); SEGMENTED NEUTROPHILS % (AUTO) 75.3 % (42-78); TOTAL CELLS COUNTED % (AUTO) 100 %; WHITE BLOOD COUNT 9.5 10^3/uL (4.0-10.5)
[2018-10-21 14:29] LABS: ALANINE AMINOTRANSFERASE 18 U/L (9-52); ALBUMIN 4.6 g/dL (3.5-5.0); ALKALINE PHOSPHATASE 71 U/L (38-126); ANION GAP 12 (5-19); ASPARTATE AMINO TRANSFERASE 18 U/L (14-36); BILIRUBIN,DIRECT 0.2 mg/dL (0.0-0.4); BILIRUBIN,TOTAL 1.5 mg/dL (0.2-1.3); BLOOD UREA NITROGEN 14 mg/dL (7-20); CALCIUM 9.6 mg/dL (8.4-10.2); CARBON DIOXIDE 22 mmol/L (22-30); CHLORIDE 104 mmol/L (98-107); GLUCOSE 85 mg/dL (75-110); SODIUM 137.9 mmol/L (137-145); TOTAL PROTEIN 8.1 g/dL (6.3-8.2)
--- NOTE | 2018-10-21 14:44 | RADIOLOGY REPORT (SQ) ---
EXAM DESCRIPTION: U/S ABDOMEN LIMITED W/O DOP COMPLETED DATE/TIME: 10/21/2018 2:32 pm REASON FOR STUDY: right upper quad abdominal pain COMPARISON: None. TECHNIQUE: Dynamic and static grayscale images acquired of the abdomen and recorded on PACS. Andrao alexis selected color Doppler and spectral images recorded. LIMITATIONS: None. FINDINGS: PANCREAS: No masses. Visualized pancreatic duct normal caliber. LIVER: No masses. Echotexture normal. LIVER VASCULATURE: Normal directional flow of the main portal vein and hepatic veins. GALLBLADDER: No stones. Normal wall thickness. No pericholecystic fluid. ULTRASOUND-DETECTED TRAORE'S SIGN: Negative. INTRAHEPATIC DUCTS AND COMMON DUCT: CBD and intrahepatic ducts normal caliber. No filling defects. INFERIOR VENA CAVA: Normal flow. AORTA: No aneurysm. RIGHT KIDNEY: Normal size. Normal echogenicity. No solid or suspicious masses. No hydronephrosis. No calcifications. PERITONEAL AND RIGHT PLEURAL SPACE: No ascites or effusions. OTHER: No other significant findings. IMPRESSION: No ultrasound abnormality of the right upper quadrant to explain right upper quadrant ab dominal pain. Consider CT or MRI to further evaluate unexplained abdominal pain. TECHNICAL DOCUMENTATION: JOB ID: [id number] [employer]- All Rights Reserved Reading location - IP/workstation name: [email or web address]
--- NOTE | 2018-10-21 15:27 | ER Document Report ---
ED GI/ - General Chief Complaint: Nausea/Vomiting/Diarrhea Stated Complaint: ABDOMINAL PAIN Time Seen by Provider: 10/21/18 13:29 Primary Care Provider: LAMONT DUNCAN JR, MD [Primary Care Provider] - Follow up as needed Mode of Arrival: Ambulatory Notes: Patient is an otherwise healthy 23-year-old female presenting to the emergency department with right upper quadrant abdominal pain with nausea, vomiting and diarrhea. Patient reports the diarrhea is persistent she has gone at least 10- 15 times today. States that she has nausea continuously but has only vomited one time which was yesterday. Patient denies any fever or chills. Denies any urinary frequency, dysuria or urgency. Patient has not had any abdominal surgeries in the past. TRAVEL OUTSIDE OF THE [place] IN LAST 30 DAYS: No - Related Data Allergies/Adverse Reactions: sulfamethoxazole [From ] Allergy (Verified 10/21/18 13:19) trimethoprim [From ] Allergy (Verified 10/21/18 13:19) Past Medical History - General Information source: Patient - Social History Smoking Status: Never Smoker Frequency of alcohol use: None Drug Abuse: None Family History: None Patient has suicidal ideation: No Patient has homicidal ideation: No Pulmonary Medical History: Reports: Hx Asthma Renal/ Medical History: Denies: Hx Peritoneal Dialysis Psychiatric Medical History: Reports: Hx Depression Past Surgical History: Reports: Hx Kidney (Renal Surgery) - "stretched" Ureters, Hx Oral Surgery - wisdom teeth removal - Immunizations Hx Diphtheria, Pertussis, Tetanus Vaccination: Yes Review of Systems - Review of Systems Constitutional: No symptoms reported. denies: Chills, Fever EENT: No symptoms reported Cardiovascular: No symptoms reported Respiratory: No symptoms reported Gastrointestinal: Abdominal pain, Diarrhea, Nausea, Vomiting Genitourinary: No symptoms reported Female Genitourinary: No symptoms reported Musculoskeletal: No symptoms reported Skin: No symptoms reported Hematologic/Lymphatic: No symptoms reported Neurological/Psychological: No symptoms reported Physical Exam - Vital signs Vitals: Temp Pulse Resp BP Pulse Ox 98.1 F 98 16 111/75 97 10/21/18 13:21 10/21/18 13:21 10/21/18 13:21 10/21/18 13:21 10/21/18 13:21 - Notes Notes: PHYSICAL EXAMINATION: GENERAL: Well-appearing, well-nourished and in no acute distress. HEAD: Atraumatic, normocephalic. EYES: Pupils equal round and reactive to light, extraocular movements intact, conjunctiva are normal. ENT: Nares patent, oropharynx clear without exudates. Moist mucous membranes. NECK: Normal range of motion, supple without lymphadenopathy LUNGS: Breath sounds clear to auscultation bilaterally and equal. No wheezes rales or rhonchi. HEART: Regular rate and rhythm without murmurs ABDOMEN: Soft, nondistended abdomen. No guarding, no rebound. No masses appreciated. Tenderness to palpation to right upper quadrant, negative Markham sign. Female : No CVA tenderness. Musculoskeletal: Normal range of motion, no pitting or edema. No cyanosis. NEUROLOGICAL: Cranial nerves grossly intact. Normal speech, normal gait. Normal sensory, motor exams PSYCH: Normal mood, normal affect. SKIN: Warm, Dry, normal turgor, no rashes or lesions noted. Course - Re-evaluation Re-evalutation: Work-up was negative today, CBC, CMP and urinalysis are unremarkable. Right upper quadrant ultrasound was also unremarkable. Patient does have some mild tenderness to the right upper quadrant. I suspect this could be gastroenteritis versus related to her gallbladder. Recommended patient follow-up with her outpatient primary care physician to have an HIDA scan done. - Vital Signs Vital signs: Temp Pulse Resp BP Pulse Ox 98.1 F 98 16 111/75 97 10/21/18 13:21 10/21/18 13:21 10/21/18 13:21 10/21/18 13:21 10/21/18 13:21 - Laboratory Result Diagrams: 10/21/18 13:57 10/21/18 13:57 Laboratory results interpreted by me: 10/21/18 13:57 Total Bilirubin 1.5 H Discharge - Discharge Clinical Impression: Nausea vomiting and diarrhea Abdominal pain Qualifiers: Abdominal location: right upper quadrant Qualified Code(s): R10.11 - Right upper quadrant pain Condition: Stable Disposition: HOME, SELF-CARE Additional Instructions: You have been seen in the Emergency Department (ED) for abdominal pain. Your evaluation did not identify a clear cause of your symptoms but was generally reassuring. Take medications as prescribed. Please follow up with your doctor as soon as possible regarding today's emergent visit and the symptoms that are bothering you. The blood work, urine and ultrasound were normal today you may want to consider getting a HIDA scan done. This needs to be ordered through your primary care physician. Return to the ED if your abdominal pain worsens or fails to improve, you develop bloody vomiting, bloody diarrhea, you are unable to tolerate fluids due to vomiting, fever greater than 101, or other symptoms that concern you. Prescriptions: Dicyclomine HCl [Bentyl 20 mg Tablet] 20 mg PO QID #40 tablet Ondansetron [Zofran Odt 4 mg Tablet] 1 - 2 tab PO Q4H PRN #15 tab.rapdis PRN Reason: For Nausea/Vomiting Referrals: LAMONT DUNCAN JR, MD [Primary Care Provider] - Follow up as needed
== END 2018-10-21 15:52 | disposition home or self-care (01) ==
LOC: ER 13:18
DX: R11.2 Nausea with vomiting, unspecified (principal); R19.7 Diarrhea, unspecified; R10.11 Right upper quadrant pain; R10.811 Right upper quadrant abdominal tenderness; J45.909 Unspecified asthma, uncomplicated; Z88.1 Allergy status to other antibiotic agents
CPT/HCPCS: 99284; 36415; 83690; 84703; 85025; 80053; 76705; S0119

== ENCOUNTER 2019-09-01 17:39 | Emergency (ER) | payer OTHER ==
--- NOTE | 2019-09-01 18:10 | ER Document Report ---
ED Medical Screen (RME) - General Chief Complaint: Depression Stated Complaint: DEPRESSION Time Seen by Provider: 09/01/19 18:08 Primary Care Provider: KYLIE VALLADARES MD [Primary Care Provider] - Follow up as needed TRAVEL OUTSIDE OF THE [place] IN LAST 30 DAYS: No - HPI Notes: 09/01/19 18:10 Patient is a 23-year-old female with a history of depression who is also approximately 8 weeks presents complaining of worsening depressive symptoms and mood with suicidal ideations for the past week since her medications were adjusted. She has had depression for the past 4 years. She has no active planning. No HI. No visual or auditory hallucinations. She has not had any pelvic pain or vaginal bleeding. No fever. I have treated and performed a rapid initial assessment of this patient. A comprehensive ED assessment and evaluation of the patient, analysis of test results and completion of medical decision making process will be conducted by additional ED providers. PHYSICAL EXAMINATION: GENERAL: Well-appearing, well-nourished and in no acute distress. A&Ox4. Answers questions appropriately. Psych: Depressed mood. Flat affect. - Related Data Allergies/Adverse Reactions: sulfamethoxazole [From Marra] Allergy (Verified 10/21/18 13:19) trimethoprim [From Marra] Allergy (Verified 10/21/18 13:19) Past Medical History Pulmonary Medical History: Reports: Hx Asthma Renal/ Medical History: Denies: Hx Peritoneal Dialysis Psychiatric Medical History: Reports: Hx Depression Past Surgical History: Reports: Hx Kidney (Renal Surgery) - "stretched" Ureters, Hx Oral Surgery - wisdom teeth removal - Immunizations Hx Diphtheria, Pertussis, Tetanus Vaccination: Yes Physical Exam - Vital signs Vitals: Temp Pulse Resp BP Pulse Ox 98.5 F 109 H 20 124/66 98 09/01/19 17:43 09/01/19 17:43 09/01/19 17:43 09/01/19 17:43 09/01/19 17:43 Course - Vital Signs Vital signs: Temp Pulse Resp BP Pulse Ox 98.5 F 109 H 20 124/66 98 09/01/19 17:43 09/01/19 17:43 09/01/19 17:43 09/01/19 17:43 09/01/19 17:43 Doctor's Discharge - Discharge Referrals: VALLADARES,KYLIE, MD [Primary Care Provider] - Follow up as needed
[2019-09-01 19:23] LABS: APPEARANCE,URINE SLIGHTLY-CLOUDY; BILIRUBIN,URINE NEGATIVE (NEGATIVE); COLOR,URINE YELLOW; GLUCOSE, URINE 50 mg/dL (NEGATIVE); KETONES,URINE NEGATIVE (NEGATIVE); LEUKOCYTE ESTERASE,URINE SMALL (NEGATIVE); NITRITE,URINE NEGATIVE (NEGATIVE); PROTEIN,URINE NEGATIVE (NEGATIVE); URINE SPECIFIC GRAVITY 1.023
[2019-09-01 19:31] LABS: ABSOLUTE LYMPHOCYTES (AUTO) 1.4 10^3/uL (0.5-4.7); ABSOLUTE MONOCYTES (AUTO) 0.5 10^3/uL (0.1-1.4); ABSOLUTE NEUT (AUTO) 5.3 10^3/uL (1.7-8.2); BASOPHILS % (AUTO) 0.4 % (0-2); EOSINOPHILS % (AUTO) 0.6 % (0-6); HEMATOCRIT 39.2 % (36.0-47.0); HEMOGLOBIN 14.1 g/dL (12.0-15.5); LYMPHOCYTES % (AUTO) 19.2 % (13-45); MEAN CORPUSCULAR HEMOGLOBIN 32.6 pg (27.0-33.4); MEAN CORPUSCULAR HGB CONC 35.9 g/dL (32.0-36.0); MEAN CORPUSCULAR VOLUME 91 fl (80-97); MONOCYTES % (AUTO) 6.8 % (3-13); PLATELET COUNT 245 10^3/uL (150-450); RED BLOOD COUNT 4.31 10^6/uL (3.72-5.28); RED CELL DISTRIBUTION WIDTH 12.9 % (11.5-14.0); TOTAL CELLS COUNTED % (AUTO) 100 %; WHITE BLOOD COUNT 7.3 10^3/uL (4.0-10.5)
[2019-09-01 19:37] LABS: URINE AMPHETAMINES SCREEN NEGATIVE; URINE BARBITURATES SCREEN NEGATIVE; URINE BENZODIAZEPINES SCREEN NEGATIVE; URINE COCAINE SCREEN NEGATIVE; URINE MARIJUANA (THC) SCREEN NEGATIVE; URINE METHADONE SCREEN NEGATIVE; URINE PHENCYCLIDINE SCREEN NEGATIVE
[2019-09-01 19:50] LABS: ALBUMIN 4.5 g/dL (3.5-5.0); ALKALINE PHOSPHATASE 85 U/L (38-126); ANION GAP 12 (5-19); ASPARTATE AMINO TRANSFERASE 18 U/L (14-36); BILIRUBIN,DIRECT 0.2 mg/dL (0.0-0.4); BLOOD UREA NITROGEN 8 mg/dL (7-20); CALCIUM 9.8 mg/dL (8.4-10.2); CARBON DIOXIDE 28 mmol/L (22-30); CHLORIDE 101 mmol/L (98-107); GLUCOSE 84 mg/dL (75-110); TOTAL PROTEIN 8.1 g/dL (6.3-8.2)
[2019-09-01 20:08] LABS: ACETAMINOPHEN < 10 ug/mL (10-30); ALCOHOL < 10 mg/dL (NONE DETECTED)
[2019-09-01 20:09] LABS: SALICYLATE < 1.0 mg/dL (2.0-20.0)
--- NOTE | 2019-09-01 21:46 | ER Document Report ---
ED Psych Disorder / Suicide - General Information source: Patient TRAVEL OUTSIDE OF THE [place] IN LAST 30 DAYS: No - HPI Patient complains to provider of: Suicidal ideation Onset: Just prior to arrival Quality of pain: No pain Suicide Risk Factors: Depressed Associated symptoms: Depressed, Unable to sleep Similar symptoms previously: Yes Recently seen / treated by doctor: No - Related Data Home Medications: Cymbalta. Lunesta. Latuda. Prenatals <ESTEFANY BLANCO - Last Filed: 09/02/19 08:26> <KOSTAS WHIPPLE - Last Filed: 09/02/19 09:57> - General Chief Complaint: Psych Problem Stated Complaint: DEPRESSION Time Seen by Provider: 09/01/19 18:08 Primary Care Provider: KYLIE VALLADARES MD [ACTIVE STAFF] - Follow up as needed Notes: Patient presents complaining of increased depressive symptoms. Patient reports difficulty sleeping, increased fatigue easy crying depressive thoughts and no motivation. Patient reports recent medication changes last week due to the fact that she is currently 8 weeks G2, P1. Patient denies any other stressors in the household. Patient reports suicidal ideation without any definitive plan. Patient does report previous history of suicide attempt in the past and has had previous inpatient treatment for her symptoms. (ESTEFANY BLANCO) - Related Data Allergies/Adverse Reactions: sulfamethoxazole [From Septra] Allergy (Verified 10/21/18 13:19) trimethoprim [From Septra] Allergy (Verified 10/21/18 13:19) Past Medical History - General Information source: Patient - Social History Smoking Status: Never Smoker Frequency of alcohol use: None Drug Abuse: None Lives with: Family Family History: None Patient has suicidal ideation: Yes Patient has homicidal ideation: No Pulmonary Medical History: Reports: Hx Asthma Renal/ Medical History: Denies: Hx Peritoneal Dialysis Psychiatric Medical History: Reports: Hx Anxiety, Hx Depression Past Surgical History: Reports: Hx Kidney (Renal Surgery) - "stretched" Ureters, Hx Oral Surgery - wisdom teeth removal - Immunizations Hx Diphtheria, Pertussis, Tetanus Vaccination: Yes <ESTEFANY BLANCO - Last Filed: 09/02/19 08:26> Review of Systems - Review of Systems Constitutional: No symptoms reported EENT: No symptoms reported Cardiovascular: No symptoms reported Respiratory: No symptoms reported Gastrointestinal: No symptoms reported Genitourinary: No symptoms reported Female Genitourinary: No symptoms reported Musculoskeletal: No symptoms reported Skin: No symptoms reported Hematologic/Lymphatic: No symptoms reported Neurological/Psychological: Suicidal ideation. denies: Homicidal ideation <ESTEFANY BLANCO - Last Filed: 09/02/19 08:26> Physical Exam - General General appearance: Appears well, Alert In distress: None - HEENT Head: Normocephalic, Atraumatic Conjunctiva: Normal Nasal: Normal Mouth/Lips: Normal Neck: Normal, Supple. No: Lymphadenopathy - Respiratory Respiratory status: No respiratory distress Chest status: Nontender Breath sounds: Normal. No: Rales, Rhonchi, Stridor, Wheezing Chest palpation: Normal - Cardiovascular Rhythm: Regular Heart sounds: S1 appreciated, S2 appreciated - Abdominal Inspection: Normal Tenderness: Nontender - Back Back: Normal, Nontender. No: CVA tenderness - Extremities General upper extremity: Normal inspection, Normal ROM General lower extremity: Normal inspection, Normal ROM - Neurological Neuro grossly intact: Yes Cognition: Normal Eladio Coma Scale Eye Opening: Spontaneous Somers Coma Scale Verbal: Oriented Eladio Coma Scale Motor: Obeys Commands Somers Coma Scale Total: 15 - Psychological Associated symptoms: Normal affect, Normal mood - Skin Skin Temperature: Warm Skin Moisture: Dry Skin Color: Normal <ESTEFANY BLANCO - Last Filed: 09/02/19 08:26> - Vital signs Vitals: Temp Pulse Resp BP Pulse Ox 98.5 F 109 H 20 124/66 98 09/01/19 17:43 09/01/19 17:43 09/01/19 17:43 09/01/19 17:43 09/01/19 17:43 Course - Laboratory Result Diagrams: 09/01/19 19:07 09/01/19 19:07 <ESTEFANY BLANCO - Last Filed: 09/02/19 08:26> - Laboratory Result Diagrams: 09/01/19 19:07 09/01/19 19:07 <KOSTAS WHIPPLE - Last Filed: 09/02/19 09:57> - Re-evaluation Re-evalutation: 09/02/19 08:27 Patient is medically clear pending mental health evaluation. Report given to the Samir VALENZUELA (ESTEFANY BLANCO) 09/02/19 09:54 Pt has been evaluated by psych team. Pt given outpatient resources and has safe support system with . Pt also to follow up with obgyn to discuss medications. Pt states she is not SI and has no other complaints at this time. Return precautions discussed. Pt voices understanding and agrees with plan of care. (KOSTAS WHIPPLE) - Vital Signs Vital signs: Temp Pulse Resp BP Pulse Ox 98.3 F 90 18 118/70 100 09/02/19 05:49 09/02/19 05:49 09/02/19 05:49 09/02/19 05:49 09/02/19 05:49 - Laboratory Laboratory results interpreted by me: 09/01/19 09/01/19 19:06 19:07 Beta HCG, Quant 802259.00 H Urine Glucose (UA) 50 H Urine Urobilinogen 4.0 H Ur Leukocyte Esterase SMALL H Salicylates < 1.0 L Acetaminophen < 10 L Discharge <ESTEFANY BLANCO - Last Filed: 09/02/19 08:26> <KOSTAS WHIPPLE - Last Filed: 09/02/19 09:57> - Discharge Clinical Impression: Suicidal ideation Qualifiers: Weeks of gestation: 8 weeks Qualified Code(s): Z3A.08 - 8 weeks gestation of Disposition: HOME, SELF-CARE Referrals: KYLIE VALLADARES MD [ACTIVE STAFF] - Follow up as needed
[2019-09-01] MEDS: CEPHALEXIN 500 MG CAPSULE PO SCH (22:06)
[2019-09-01] MEDS ORDERED: ACETAMINOPHEN 325 MG TABLET PO ONE (23:40)
[2019-09-02] MEDS ORDERED: ZOLPIDEM TARTRATE 5 MG TABLET PO ONE (00:45)
[2019-09-02] MEDS ORDERED: DULOXETINE HCL 30 MG CAPSULE.DR PO ONE (00:45)
[2019-09-02] MEDS ORDERED: LURASIDONE HCL 40 MG TABLET PO ONE (00:45)
[2019-09-02] MEDS ORDERED: DIPHENHYDRAMINE HCL 50 MG CAPSULE PO ONE (00:56)
--- NOTE | 2019-09-02 01:10 | EKG REPORT ---
SEVERITY:- BORDERLINE ECG - SINUS RHYTHM PROBABLE LEFT ATRIAL ABNORMALITY : Confirmed by: Claire Ortega MD 02-Sep-2019 01:09:26
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
[2019-09-02] MEDS: CEPHALEXIN 500 MG CAPSULE PO SCH (10:38)
[2019-09-02 11:52] VITALS: BP 102/68
[2019-09-02] MEDS ORDERED: DULOXETINE HCL 30 MG CAPSULE.DR PO SCH (22:00)
[2019-09-02] MEDS ORDERED: LURASIDONE HCL 40 MG TABLET PO SCH (22:00)
[2019-09-02] MEDS ORDERED: ZOLPIDEM TARTRATE 5 MG TABLET PO SCH (22:00)
== END 2019-09-02 11:45 | disposition home or self-care (01) ==
LOC: ER 17:39
DX: O99.341 Other mental disorders complicating pregnancy, first trimester (principal); R45.851 Suicidal ideations; F32.9 Major depressive disorder, single episode, unspecified; Z3A.08 8 weeks gestation of pregnancy
CPT/HCPCS: 93005; 99285; 36415; 87086; 80307 ×4; 84702; 84443; 85025; 80053; 81001; 93010; J3490

== ENCOUNTER 2020-04-11 12:44 | Inpatient (IN) | payer OTHER ==
[2020-04-11 13:39] LABS: APPEARANCE,URINE CLEAR; BILIRUBIN,URINE NEGATIVE (NEGATIVE); COLOR,URINE YELLOW; GLUCOSE, URINE NEGATIVE (NEGATIVE); KETONES,URINE NEGATIVE (NEGATIVE); LEUKOCYTE ESTERASE,URINE NEGATIVE (NEGATIVE); NITRITE,URINE NEGATIVE (NEGATIVE); PROTEIN,URINE 30 mg/dL (NEGATIVE); URINE SPECIFIC GRAVITY 1.023; UROBILINOGEN,URINE NEGATIVE mg/dL (<2.0)
[2020-04-11 14:00] LABS: URINE AMPHETAMINES SCREEN NEGATIVE; URINE BARBITURATES SCREEN NEGATIVE; URINE BENZODIAZEPINES SCREEN NEGATIVE; URINE COCAINE SCREEN NEGATIVE; URINE MARIJUANA (THC) SCREEN NEGATIVE; URINE METHADONE SCREEN NEGATIVE; URINE PHENCYCLIDINE SCREEN NEGATIVE
[2020-04-11] MEDS ORDERED: RINGERS SOLUTION,LACTATED 1,000 ML IV PRN (14:32)
[2020-04-11] MEDS ORDERED: RINGERS SOLUTION,LACTATED 1,000 ML IV ONE (14:32)
--- NOTE | 2020-04-11 14:45 | Admission Physical ---
Datetime Report Generated by CPN: 04/11/2020 14:45 CURRENT ADMISSION Chief Complaint: Uterine Contractions Indication for Induction: Not Applicable Admit Impression : Term, Intrauterine ; Active Labor; Intact Membranes Admit Plan: Admit to Unit; Initiate Labor Protocol ALLERGIES Medication Allergies: Yes Medication Allergies: sulfamethoxazole (04/11/2020); trimethoprim (04/11/2020) Latex: No Latex Allergies OBSTETRICAL HISTORY EDC: 04/10/2020 00:00 : 2 Para: 1 Term: 1 : 0 SAB: 0 IAB: 0 Livin PHYSICAL EXAM General: Normal HEENT: Normal Neurologic: Normal Thyroid: Deferred Heart: Normal Lungs: Normal Breast: Deferred Back: Normal Abdomen: Normal Genitourinary Exam: Deferred Extremities: Normal DTRs: Normal Pelvic Type: Adequate Vital Signs: Reviewed; Within Normal Limits VAGINAL EXAM Dilatation: 7 MEMBRANES Membranes: Intact FETUS A EGA: 40.1 Monitoring: External US FHR- Baseline: 130 Accelerations: 15X15 Decelerations: None FHR Category: Category I Presentation: Vertex Admit Comment: Proven for 8lbs 0 oz echo-mildly elevated pulmonary flow velocities, large fossa ovalis Admitted in labor records available on chart Epidural for pain management Anticipated INFORMED CONSENT Assignment: Virginia Jeronimo MD Signature: with User ID: [email or web address] : with User ID: [email or web address] : I personally evaluated and examined the patient in conjunction with the MLP and agree with the assessment, treatment plan and disposition.
[2020-04-11] MEDS ORDERED: OXYTOCIN 10 UNIT/ML VIAL ONE (14:56)
[2020-04-11] MEDS ORDERED: EPHEDRINE SULFATE INJ 50 MG/1 ML AMPULE ONE (14:57)
[2020-04-11] MEDS ORDERED: FENTANYL/BUPIVACAINE/NS/PF 300 MCG/150 ML RTUINJ EPI ONE (14:57)
[2020-04-11] MEDS ORDERED: ROPIVACAINE HCL 0.2% INJ/PF (2 MG/ML) 20 ML SDV ONE (14:57)
[2020-04-11] MEDS ORDERED: MISOPROSTOL 0.2 MG TABLET ONE (14:57)
[2020-04-11] MEDS ORDERED: LIDOCAINE 1% INJ-PF (10 MG/ML) 30 ML SDV ONE (14:57)
[2020-04-11] MEDS ORDERED: OXYTOCIN/0.9 % SODIUM CHLORIDE 30 UNIT/500 ML RTUINJ ONE (14:57)
[2020-04-11 16:00] LABS: ABSOLUTE LYMPHOCYTES (AUTO) 0.9 10^3/uL (0.5-4.7); ABSOLUTE MONOCYTES (AUTO) 0.5 10^3/uL (0.1-1.4); ABSOLUTE NEUT (AUTO) 9.9 10^3/uL (1.7-8.2); BASOPHILS % (AUTO) 0.3 % (0-2); EOSINOPHILS % (AUTO) 0.1 % (0-6); HEMATOCRIT 32.8 % (36.0-47.0); HEMOGLOBIN 10.7 g/dL (12.0-15.5); LYMPHOCYTES % (AUTO) 8.1 % (13-45); MEAN CORPUSCULAR HEMOGLOBIN 26.1 pg (27.0-33.4); MEAN CORPUSCULAR HGB CONC 32.6 g/dL (32.0-36.0); MEAN CORPUSCULAR VOLUME 80 fl (80-97); MONOCYTES % (AUTO) 4.1 % (3-13); PLATELET COUNT 201 10^3/uL (150-450); RED BLOOD COUNT 4.09 10^6/uL (3.72-5.28); RED CELL DISTRIBUTION WIDTH 16.7 % (11.5-14.0); SEGMENTED NEUTROPHILS % (AUTO) 87.4 % (42-78); TOTAL CELLS COUNTED % (AUTO) 100 %; WHITE BLOOD COUNT 11.3 10^3/uL (4.0-10.5)
[2020-04-11] MEDS ORDERED: PROMETHAZINE HCL 25 MG TABLET PO PRN (18:07)
[2020-04-11] MEDS ORDERED: DIPH/PERTUSS(ACELL)/TETANUS VAC/PF 0.5 ML SYR (>=10YO) IM PRN (18:07)
[2020-04-11] MEDS ORDERED: MEASLES,MUMPS&RUBELLA VACC/PF 0.5 ML VIAL SUBCUT PRN (18:07)
[2020-04-11] MEDS ORDERED: GLYCERIN/WITCH HAZEL LEAF 1 EACH MED..WIPE TP PRN (18:07)
[2020-04-11] MEDS ORDERED: PROMETHAZINE HCL INJ 25 MG/1 ML VIAL IV PRN (18:07)
[2020-04-11] MEDS ORDERED: BENZOCAINE/MENTHOL AEROSOL SPRAY 56 ML TOP PRN (18:07)
[2020-04-11] MEDS ORDERED: DIPHENHYDRAMINE HCL 25 MG CAPSULE PO PRN (18:07)
[2020-04-11] MEDS ORDERED: PROMETHAZINE HCL 25 MG SUPP.RECT PR PRN (18:07)
[2020-04-11] MEDS ORDERED: ACETAMINOPHEN WITH CODEINE #3 TABLET PO PRN ×2 (18:07)
[2020-04-11] MEDS ORDERED: OXYTOCIN/0.9 % SODIUM CHLORIDE 30 UNIT/500 ML RTUINJ IV PRN (18:07)
[2020-04-11] MEDS ORDERED: ACETAMINOPHEN 650 MG SUPP.RECT PR PRN (18:07)
[2020-04-11] MEDS ORDERED: PSEUDOEPHEDRINE HCL 30 MG TABLET PO PRN (18:07)
[2020-04-11] MEDS ORDERED: NA PHOS,M-B/NA PHOS,DI-BA (ADULT) 133 ML ENEMA PR PRN (18:07)
[2020-04-11] MEDS ORDERED: DIBUCAINE 1% OINTMENT 28 GM TP PRN (18:07)
[2020-04-11] MEDS ORDERED: MAGNESIUM HYDROXIDE SUSP 30 ML UDCUP PO PRN (18:07)
[2020-04-11] MEDS ORDERED: ZOLPIDEM TARTRATE 5 MG TABLET PO PRN (18:07)
--- NOTE | 2020-04-11 18:56 | Birth Certificate Data ---
Cert Data Datetime Report Generated by CPN: 04/11/2020 18:56 CERTIFICATE DATA 47a. Care: Yes (04/11/2020 12:52:PAPA Blue) 47b. Date of First Visit: 09/12/2019 00:00 (04/11/2020 12:52:Jessie Salas RN) 47c. Date of Last Visit: 04/09/2020 00:00 (04/11/2020 12:52:Jessie Salas RN) 47d. Number of Visits: 15 (04/11/2020 12:52:Jessie Salas RN) 48a. Number of Prev Live Births: 1 (04/11/2020 12:52:Fany Cazares RN) 48b. Now Livin (04/11/2020 12:52:Fany Cazares RN) 48c. Live Births Now : 0 (04/11/2020 12:52:QS system process) 48e. Losses: 0 (04/11/2020 12:52:Fany Cazares RN) RISK FACTORS IN THIS 49a. Diabetes: No (04/11/2020 12:52:Fany Cazares RN) 49b. Hypertension: No (04/11/2020 12:52:Fany Cazares RN) 49c. Previous Births: 0 (04/11/2020 12:52:Fany Cazares RN) 49d. Stillborns: No (04/11/2020 12:52:Fany Cazares RN) 49d. IUGR: No (04/11/2020 12:52:Fany Cazares RN) 49e. Infertility Treatment: No (04/11/2020 12:52:Fany Cazares RN) 49f. Previous Cesareans: 0 (04/11/2020 12:52:Fany Cazares RN) Mother's Height 50b. Height Inches: 65 (04/11/2020 12:56:QS system process) Mother's Weight 51a. Pre- Weight (lbs): 172 (04/11/2020 12:52:Jessie Salas RN) 51b. Weight at Delivery (lbs): 213 (04/11/2020 12:56:QS system process) 52. Dt Last Normal Menses Began: 07/05/2019 00:00 (04/11/2020 12:52:Jessie Salas RN) Infections Present/Treated 53a. Gonorrhea: No (04/11/2020 12:52:Fany Cazares RN) Results this Hospital Visit : Negative (04/11/2020 12:52:Jessie Salas RN) 53b. Syphilis: No (04/11/2020 12:52:Fany Cazares RN) 53c. Chlamydia: No (04/11/2020 12:52:Fany Cazares RN) Results this Hospital Visit: Negative (04/11/2020 12:52:Jessie Salas RN) 53d. Hepatitis B: No (04/11/2020 12:52:Fany Cazares RN) Results this Hospital Visit: Negative (04/11/2020 12:52:Fany Cazares RN) 53e. Hepatitis C: Negative (04/11/2020 12:52:Jessie Salas RN) 53h. Mother Tested for HBsAG: Yes (04/11/2020 12:52:Fany Cazares RN) 53i. Date Tested: 10/10/2019 00:00 (04/11/2020 12:52:Jessie Salas RN) 53j. Test Result: Negative (04/11/2020 12:52:Fany Cazares RN) Obstetric Procedures 54a, b, c. Obstetric Procedures: Ultrasound (04/11/2020 12:52:Fany Cazares RN) Cigarette Smoking Cigarette Smoking: Never Smoker. [id number] (04/11/2020 12:52:Fany Cazares RN) 55a. 3 Months Before Preg - Ci (04/11/2020 12:52:Fany Cazares RN) 55b. 1st Trimester of Preg- Ci (04/11/2020 12:52:Fany Cazares RN) 55c. 2nd Trimester of Preg- Ci (04/11/2020 12:52:Fany Cazares RN) 55d. 3rd Trimester of Preg- Ci (04/11/2020 12:52:Fany Cazares RN) Onset of Labor 56a. PROM >12 Hrs: 0.32 (04/11/2020 12:52:QS system process) 56b. Precipitous Labor <3 Hrs: 3 (04/11/2020 12:52:QS system process) 56c. Prolonged Labor > 20 Hrs: 3 (04/11/2020 12:52:QS system process) 57a. Induction of Labor: N/A (04/11/2020 12:52:PAPA Blue) 57c. Non-Vertex Presentation A: Vertex (04/11/2020 12:52:PAPA Blue) 57d. Steroids - Lung Mat: None (04/11/2020 12:52:PAPA Blue) 57d. Steroids - Lung Mat: Not Applicable (04/11/2020 12:52:PAPA Blue) 57g. Moderate/Heavy Meconium: Light Meconium (04/11/2020 17:14:Jessie Salas RN) 57h. Intolerance of Labor: N/A (04/11/2020 12:52:PAPA Blue) : N/A (04/11/2020 12:52:Gris Kimball, [facility]) 57i. Epidural/Spinal Anesthesia: Epidural (04/11/2020 12:52:Gris Kimball [facility]) Method of Delivery 58a. Forceps - Unsuccessful A: N/A (04/11/2020 12:52:Gris Kimball, [facility]) 58b. Vacuum - Unsuccessful A: N/A (04/11/2020 12:52:Gris [place], [facility]) 58c. Presentation at 58c. Presentation at - A : Vertex (04/11/2020 12:52:Gris Kimball, [facility]) 58c. Presentation at - A : N/A (04/11/2020 12:52:Gris Kimball, [facility]) 58c. Presentation at - A : Cephalic (04/11/2020 12:52:Gris Kimball, [facility]) Final Route and Method of Del 58d. Baby A Route/Delivery: Vaginal (04/11/2020 17:33:Jessie Sales, RN) 58e. Trial of Labor Attempted: No (04/11/2020 12:52:Gris [place], [facility]) 58e. Trial of Labor Attempted A: N/A (04/11/2020 12:52:Gris [place], [facility]) 58e. Trial of Labor Attempted B: N/A (04/11/2020 12:52:Gris [place], [facility]) Maternal Morbidity 59b. 3rd or 4th Degree Lacs: None (04/11/2020 12:52:Gris [place], [facility]) 59b. 3rd or 4th Degree Lacs: N/A (04/11/2020 12:52:Gris [place], [facility]) 61. GA at Delivery Baby A: 40.1 (04/11/2020 12:52:Gris [place]ig[place], [facility]) : Full Term- 39- 40.6 Weeks (04/11/2020 12:52:QS system process) 62a. 5 Minute Baby A: 9 (04/11/2020 12:52:QS system process)
--- NOTE | 2020-04-11 18:56 | Delivery Summary ---
Del Sum A-C Datetime Report Generated by CPN: 04/11/2020 18:56 DELIVERY PERSONNEL DELIVERY PERSONNEL: [id number] Delivery Doctor:: Mandy Cox CNM Nurse Manager Cath Lab Certified:: Mandy Cox CNM Labor and Delivery Nurse:: Jessie Salas RNcommercial accountant Nurse:: Fany Cazares RN Nursery Nurse:: BOUCHRA Chakraborty/CARD TAPE CONVERTER OPERATOR: Renetta Roberts, SILO FILLER Additional Personnel: : Gris Kimball RNC MATERNAL INFORMATION Delivery Anesthesia: Epidural Medications After Delivery: Pitocin Bolus-Please Comment; Pitocin 30 Units in 500ml NS/D5W Estimated Blood Loss (ml): 50 Maternal Complications: None Provider Comments: Called to room 7, patient c/c/+1 with bulging bag. AROM light meconium fluid. Patient instructed to push. live female in vertex SAMUEL @ 1733. Spontaneous respirations and cry. 3 vessel cord. Apgars 8-9. Nursery RN present. Placenta expelled at 1738-Adkins presentation, intact. Perineum inspected-intact. Minimal blood loss. Patient tolerated procedure well. LABOR SUMMARY EDC: 04/10/2020 00:00 No. Babies in Womb: 1 Attempted: No Labor Anesthesia: Epidural LABOR INFORMATION Reason for Induction: Not Applicable Onset of Labor: 04/11/2020 13:48 Complete Dilatation: 04/11/2020 16:42 Oxytocin: N/A Group B Beta Strep: 0 Antibiotics # of Doses: 0 Name of Antibiotic Given: 0 Steroids Given: None Reason Steroids Not Administered: Not Applicable MEMBRANES Membranes Rupture Method: Artificial Rupture of Membranes: 04/11/2020 17:14 Length of Rupture (hr): 0.32 Amniotic Fluid Color: Light Meconium Amniotic Fluid Amount: Small Amniotic Fluid Odor: Normal STAGES OF LABOR Stage 1 hr: 2 Stage 1 min: 54 Stage 2 hr: 0 Stage 2 min: 51 Stage 3 hr: 0 Stage 3 min: 7 Total Time in Labor hr: 3 Total Time in Labor min: 52 VAGINAL DELIVERY Episiotomy: None Laceration #1: None Laceration Extension #1: N/A Laceration Repair: Not Applicable Sponge Count Correct: N/A Sharps Count Correct: Yes CSECTION DELIVERY Primary Indication: N/A Secondary Indication: N/A CSection Incidence: N/A Labor: N/A Elective: N/A CSection Incision: N/A BABY A INFORMATION Delivery Date/Time: 04/11/2020 17:33 Method of Delivery: Vaginal Nurse Controlled Delivery: No Born in Route : No : N/A Forceps: N/A Vacuum Extraction: N/A Shoulder Dystocia : No PRESENTATION/POSITION BABY A Presentation: Cephalic Cephalic Presentation: Vertex Vertex Position: Left Occipital Anterior Breech Presentation: N/A PLACENTA INFORMATION BABY A Placenta Delivery Time : 04/11/2020 17:40 Placenta Method of Delivery: Spontaneous Placenta Status: Delivered SCORES BABY A Heart Rate 1 min: >100 bpm Resp Effort 1 min: Good Cry Reflex Irritability 1 min: Cough or Sneeze or Pulls Away Muscle Tone 1 min: Active Motion Color 1 min: Blue/Pale Resuscitation Effort 1 min: Tactile Stimulation SCORE 1 MIN: 8 Heart Rate 5 min: >100 bpm Resp Effort 5 min: Good Cry Reflex Irritability 5 min: Cough or Sneeze or Pulls Away Muscle Tone 5 min: Active Motion Color 5 min: Body [place], Extremities Blue Resuscitation Effort 5 min: N/A SCORE 5 MIN: 9 Resuscitation Effort 10 min: N/A INFANT INFORMATION BABY A Gestational Age at Delivery: 40.1 Gestational Status: Full Term- 39- 40.6 Weeks Outcome : Liveborn Condition : Stable Infant Sex: Female IDENTIFICATION BABY A Verification Date/Time: 04/11/2020 17:50 ID Band Number: [id number] Mother's Name Verified: Yes Infant RN Verifying Infant: MDesirae Josue, RN Additional Verifying Personnel: Tank Cazares RN CORD INFORMATION BABY A No. Cord Vessels: 3 Nuchal Cord : N/A Cord Blood Taken: Yes-For Eval (Mom's Blood Type - or O+) Infant Suction: None ASSESSMENT BABY A Skin to Skin: Yes BABY B INFORMATION : N/A SIGNATURES Assignment: Virginia Jeronimo MD Signature: with User ID: [email or web address] : with User ID: [email or web address] : Terrence personally evaluated and examined the patient in conjunction with the P and agree with the assessment, treatment plan and disposition.
[2020-04-11] MEDS: FAMOTIDINE 20 MG TABLET PO SCH (22:14)
[2020-04-11] MEDS: IBUPROFEN 800 MG TABLET PO SCH (22:14)
[2020-04-12] MEDS: IBUPROFEN 800 MG TABLET PO SCH ×3 (06:39→22:31)
[2020-04-12 08:38] LABS: HEMATOCRIT 29.3 % (36.0-47.0); MEAN CORPUSCULAR HEMOGLOBIN 26.8 pg (27.0-33.4); MEAN CORPUSCULAR HGB CONC 34.1 g/dL (32.0-36.0); MEAN CORPUSCULAR VOLUME 79 fl (80-97); PLATELET COUNT 173 10^3/uL (150-450); RED BLOOD COUNT 3.72 10^6/uL (3.72-5.28); RED CELL DISTRIBUTION WIDTH 16.6 % (11.5-14.0); WHITE BLOOD COUNT 9.9 10^3/uL (4.0-10.5)
[2020-04-12] MEDS: FERROUS SULFATE 325 MG TABLET PO SCH ×2 (11:01→17:38)
[2020-04-12] MEDS: PRENATAL VITAMIN W DHA CAPSULE PO SCH (11:01)
[2020-04-12] MEDS: SENNOSIDES/DOCUSATE 8.6-50 MG 1 EACH TABLET PO SCH (11:02)
[2020-04-12] MEDS: DOCUSATE SODIUM 100 MG CAPSULE PO SCH ×2 (11:02→17:38)
[2020-04-12] MEDS: FAMOTIDINE 20 MG TABLET PO SCH ×2 (11:02→22:32)
--- NOTE | 2020-04-12 12:33 | PDOC PROGRESS REPORT ---
Subjective-OB Progress Note for:: 04/12/20 Subjective: Pt doing well, no concerns. Bleeding normal, reg diet and voids w/o difficulty. Physical Exam (OB) Vital Signs: Temp Pulse Resp BP Pulse Ox 97.9 F 72 16 105/60 97 04/12/20 07:45 04/12/20 07:45 04/12/20 07:45 04/12/20 07:45 04/12/20 07:45 Intake & Output 04/11/20 04/12/20 04/13/20 06:59 06:59 06:59 Intake Total 1800 Balance 1800 Weight 96.5 kg - Maternal Morbidity 59. Maternal Morbidity (serious complications experinced by the mother associated with labor and delivery: None of the above - Abdomen Description: Tender Flatus Presence: Present Fundal Height: u/u - u/2 Objective-Diagnostic Laboratory: 04/12/20 07:40 04/11/20 04/11/20 04/11/20 12:55 15:40 15:40 WBC 11.3 H RBC 4.09 Hgb 10.7 L Hct 32.8 L MCV 80 MCH 26.1 L MCHC 32.6 RDW 16.7 H Plt Count 201 Seg Neutrophils % 87.4 H Urine Color YELLOW Urine Appearance CLEAR Urine pH 5.0 Ur Specific [place] 1.023 Urine Protein 30 H Urine Glucose (UA) NEGATIVE Urine Ketones NEGATIVE Urine Blood NEGATIVE Urine Nitrite NEGATIVE Ur Leukocyte Esterase NEGATIVE Blood Type O POSITIVE Antibody Screen NEGATIVE 04/12/20 07:40 WBC 9.9 RBC 3.72 Hgb 10.0 L Hct 29.3 L MCV 79 L MCH 26.8 L MCHC 34.1 RDW 16.6 H Plt Count 173 Seg Neutrophils % Urine Color Urine Appearance Urine pH Ur Specific [place] Urine Protein Urine Glucose (UA) Urine Ketones Urine Blood Urine Nitrite Ur Leukocyte Esterase Blood Type Antibody Screen Assessment and Plan(PN) - Assessment and Plan (1) History of depression Is this a current diagnosis for this admission?: Yes (2) Spontaneous onset of labor Is this a current diagnosis for this admission?: Yes (3) Vaginal delivery Is this a current diagnosis for this admission?: Yes - Time Spent with Patient Time with patient: Less than 15 minutes Medications reviewed and adjusted accordingly: Yes - Disposition Anticipated Discharge Disposition: Home, Self Care Anticipated Discharge Timeframe: within 24 hours
[2020-04-12 20:14] VITALS: BP 122/58
[2020-04-13] MEDS: IBUPROFEN 800 MG TABLET PO SCH (05:16)
--- NOTE | 2020-04-13 08:51 | PDOC DISCHARGE SUMMARY ---
Impression - Admit/DC Date/PCP Admission Date/Primary Care Provider: 04/11/20 14:33 MONCHO SMITH MD Discharge Date: 04/13/20 - Discharge Diagnosis (1) History of depression Is this a current diagnosis for this admission?: Yes (2) Spontaneous onset of labor Is this a current diagnosis for this admission?: Yes (3) Vaginal delivery Is this a current diagnosis for this admission?: Yes - Additional Information Resuscitation Status: Full Code Discharge Diet: Regular Discharge Activity: Balance Activity w/Rest, Pelvic Rest Referrals: MONCHO SMITH MD [Primary Care Provider] - Prescriptions: Ibuprofen [Motrin 800 mg Tablet] 800 mg PO Q8HP PRN #60 tablet PRN Reason: Home Medications: 95/Iron Fum/Folic/Dha [ + Dha Combo Pack] 1 each PO DAILY 04/11/20 Ibuprofen [Motrin 800 mg Tablet] 800 mg PO Q8HP PRN #60 tablet 04/13/20 HPI Gestational Age: 40.1 Reason(s) for Admission: Onset of Labor Procedures: NST Intrapartum Procedure(s): Spontaneous Vaginal Delivery Hospital Course 59. Maternal Morbidity (serious complications experinced by the mother associated with labor and delivery: None of the above Results Laboratory Results: WBC 9.9 10^3/uL (4.0-10.5) 04/12/20 07:40 RBC 3.72 10^6/uL (3.72-5.28) 04/12/20 07:40 Hgb 10.0 g/dL (12.0-15.5) L 04/12/20 07:40 Hct 29.3 % (36.0-47.0) L 04/12/20 07:40 MCV 79 fl (80-97) L 04/12/20 07:40 MCH 26.8 pg (27.0-33.4) L 04/12/20 07:40 MCHC 34.1 g/dL (32.0-36.0) 04/12/20 07:40 RDW 16.6 % (11.5-14.0) H 04/12/20 07:40 Plt Count 173 10^3/uL (150-450) 04/12/20 07:40 Lymph % (Auto) 8.1 % (13-45) L 04/11/20 15:40 [place] % (Auto) 4.1 % (3-13) 04/11/20 15:40 Eos % (Auto) 0.1 % (0-6) 04/11/20 15:40 Baso % (Auto) 0.3 % (0-2) 04/11/20 15:40 Absolute Neuts (auto) 9.9 10^3/uL (1.7-8.2) H 04/11/20 15:40 Absolute Lymphs (auto) 0.9 10^3/uL (0.5-4.7) 04/11/20 15:40 Absolute Monos (auto) 0.5 10^3/uL (0.1-1.4) 04/11/20 15:40 Absolute Eos (auto) 0.0 10^3/uL (0.0-0.6) 04/11/20 15:40 Absolute Basos (auto) 0.0 10^3/uL (0.0-0.2) 04/11/20 15:40 Seg Neutrophils % 87.4 % (42-78) H 04/11/20 15:40 Urine Color YELLOW 04/11/20 12:55 Urine Appearance CLEAR 04/11/20 12:55 Urine pH 5.0 (5.0-9.0) 04/11/20 12:55 Ur Specific [place] 1.023 04/11/20 12:55 Urine Protein 30 mg/dL (NEGATIVE) H 04/11/20 12:55 Urine Glucose (UA) NEGATIVE mg/dL (NEGATIVE) 04/11/20 12:55 Urine Ketones NEGATIVE mg/dL (NEGATIVE) 04/11/20 12:55 Urine Blood NEGATIVE (NEGATIVE) 04/11/20 12:55 Urine Nitrite NEGATIVE (NEGATIVE) 04/11/20 12:55 Urine Bilirubin NEGATIVE (NEGATIVE) 04/11/20 12:55 Urine Urobilinogen NEGATIVE mg/dL (<2.0) 04/11/20 12:55 Ur Leukocyte Esterase NEGATIVE (NEGATIVE) 04/11/20 12:55 Urine Ascorbic Acid NEGATIVE (NEGATIVE) 04/11/20 12:55 Urine Opiates Screen NEGATIVE 04/11/20 12:55 Urine Methadone Screen NEGATIVE 04/11/20 12:55 Ur Barbiturates Screen NEGATIVE 04/11/20 12:55 Ur Phencyclidine Scrn NEGATIVE 04/11/20 12:55 Ur Amphetamines Screen NEGATIVE 04/11/20 12:55 U Benzodiazepines Scrn NEGATIVE 04/11/20 12:55 Urine Cocaine Screen NEGATIVE 04/11/20 12:55 U Marijuana (THC) Screen NEGATIVE 04/11/20 12:55 RPR NONREACTIVE (NONREACTIVE) 04/11/20 15:40 Blood Type O POSITIVE 04/11/20 15:40 Antibody Screen NEGATIVE 04/11/20 15:40 Plan Plan of Treatment: f/u at [facility] 4 wks Time Spent: Less than 30 Minutes
[2020-04-13] MEDS ORDERED: INFLUENZA QUAD (6MOS+) 2020-21 VAC 0.5 ML SYR IM ONE (09:00)
[2020-04-13] MEDS: FERROUS SULFATE 325 MG TABLET PO SCH (10:59)
[2020-04-13] MEDS: DOCUSATE SODIUM 100 MG CAPSULE PO SCH (10:59)
[2020-04-13] MEDS: SENNOSIDES/DOCUSATE 8.6-50 MG 1 EACH TABLET PO SCH (10:59)
[2020-04-13] MEDS: FAMOTIDINE 20 MG TABLET PO SCH (10:59)
[2020-04-13] MEDS: PRENATAL VITAMIN W DHA CAPSULE PO SCH (11:00)
== END 2020-04-13 12:58 | disposition home or self-care (01) | DRG 807 ==
LOC: LC 12:44 → LR 14:33 → 2S 20:00
PROVIDERS: ADMIT Obstetrics & Gynecology; ATTEND Obstetrics & Gynecology
PROC: 10E0XZZ Delivery of Products of Conception, External Approach (ICD-10-PCS; principal; 2020-04-11)
PROC: 3E02340 Introduction of Influenza Vaccine into Muscle, Percutaneous Approach (ICD-10-PCS; 2020-04-13)
DX: O77.0 Labor and delivery complicated by meconium in amniotic fluid (principal); Z37.0 Single live birth; Z3A.40 40 weeks gestation of pregnancy; Z88.2 Allergy status to sulfonamides; Z23 Encounter for immunization
CPT/HCPCS: 1967; 36415; 80307; 81005; 85025; 85027; 86592; 86850; 86900; 86901; 88307; 90471; 90686; 94760; G0008; J2590; J2795; J3010; J3490